=== PATIENT | female | born 1955 | race Caucasian/White ===

== ENCOUNTER → 2016-09-06 | Outpatient (CLI) | payer BC, OTHER ==
[~2016-09-06] VITALS: Ht 157.5 cm; Wt 118.7 kg
[~2016-09-06] MED LIST: BAYER CHEWABLE81 MG PO; BUPRENORPHN-NA1 EACH SUBLING; BUTRANS1 EAC3 TD; BUTRANS1 EACH TD; CARISOPRODOL 3350 MG PO; FISH OIL 1,001000 M2 PO; LEVAQUIN 250 M250 MG PO; LISINOPRIL20 MG PO; MOBIC15 MG PO; NORVASC5 MG PO; PHENTERMINE HCL30 MG PO; PREDNISONE 5 MG5 M1 PO; PRILOSEC OTC20 MG PO; SUBOXONE 2 MG-1 EAC1 SL; ULTRAM 50MG TAB50 MG PO; ZANAFLEX4 MG PO
--- NOTE | ~2016-09-06 | HPC ---
[facility] [place] [place] [address] PAIN MANAGEMENT CONSULTATION Name: LEXUS THOMAS Room #: REG Nae Galo#: [id number] Admission: 09/06/16 Attend Phys: Victor Manuel Roth DO Discharge: Date of : 59 Report #: [id number] THIS REPORT FOR: //name// CC: Jaziel Roth The patient is a pleasant 61-year-old female being treated for myofascial pain, chronic pain syndrome requiring complex medication management, comorbidity includes elevated BMI of 48.2 kg per meter squared, osteoarthritis affecting hands and shoulders. Last visit on 07/12/2016. The patient was continued on Suboxone 2/0.5 b.i.d., Soma 350 one to two at bedtime and tramadol for breakthrough pain 50 mg 2 to 3 a day. He returns to pain clinic today. Medications have continued to provide sufficient analgesia, to participate in activities of daily living, rates the pain about 2 to 3 out of 10. Today she is quite distraught, had a daughter who was recently diagnosed with thyroid cancer. While she notes the surgeon has assured her that it this particular cancer has a very high efficacy of treatment rate, she did unfortunately have, I believe, positive cervical lymph nodes. Otherwise she is relatively unchanged, pleasant 61-year-old female, BMI of 47.8 kg per meter squared, modestly down from last visit. Blood pressure is a little bit elevated at 139/96, pulse 89, respirations 20. She does not use tobacco products. Rises from chair using armrest. Diffuse tenderness across the low back, right greater than left, point tenderness, no discrete trigger point. Gait is tandem. We reviewed the fact that opiate medications are being used to provide analgesia adequate to support activities of daily living, not attempting to achieve a specific pain score on the 0-10 Visual Analog Scale. The current opiate medications are providing sufficient analgesia to allow the patient to participate in activities of daily living. The patient is not exhibiting any aberrant behavior suggestive of drug diversion. The patient is not having any adverse reactions to medications. The patient is not suffering from daytime somnolence or mental acuity changes. The patient is managing opiate-induced constipation with appropriate guns-hgx-ccvjgaj agents and dietary considerations. The patient was counseled on concern for caution with operating a motor vehicle while using opiate medications. A physical exam was performed and the patient's functional status was evaluated. All patients with back pain were advised against the bed rest greater than 4 days and were advised to return to normal activities. Pain score assessment was noted and the treatment plan was reviewed with the patient. All current medications, both prescribed and OTC were reviewed and reconciled on the electronic medical record. Tobacco screening was accomplished and smoking cessation was advised when indicated. BMI was noted and diet/exercise [address] [address] PAIN MANAGEMENT CONSULTATION Name: LEXUS THOMAS Room #: REG LUANNE Galo#: [id number] Admission: 09/06/16 Attend Phys: Victor Manuel Roth DO Discharge: Date of : 59 Report #: [id number] modification was recommended for all patients following outside normal parameters. I reviewed with the patient today their responsibilities to safeguard prescription medications, reviewed their responsibility to utilize medications only as prescribed by the physician. They are to seek and receive pain medications only from 1 physician group ( [facility]). They are to use 1 pharmacy and keep the clinic informed if they change pharmacies. Their responsibilities include making followup visits in a timely fashion and to avoid abrupt discontinuation of medication usage. Their responsibilities further include bringing their medications (bottles from the pharmacy with residual pills) to the visit for possible confirmation of pill counts and the patient understands it is their responsibility to submit to random drug screens to ensure both that the medications prescribed are present, and that no other controlled substances are present. All prescriptions provided today were generated electronically. ASSESSMENT: Myofascial pain requiring chronic complex medication management for chronic pain syndrome and osteoarthritis affecting hands and shoulders, stable on baseline medications. RECOMMENDATION: Renew medications unchanged. Follow up in 2 months for reevaluation. <ELECTRONICALLY SIGNED> By: Victor Manuel Roth DO 09/13/16 0858 [id number] [id number] Victor Manuel Roth DO /nt
[2016-09-06 13:37] VITALS: BP 139/96
== END ==
LOC: PAIN 06:50
DX: M79.1 Myalgia (principal); G89.4 Chronic pain syndrome; E66.01 Morbid (severe) obesity due to excess calories; Z68.42 Body mass index [BMI] 45.0-49.9, adult; M19.042 Primary osteoarthritis, left hand; M19.041 Primary osteoarthritis, right hand; M19.012 Primary osteoarthritis, left shoulder; M19.011 Primary osteoarthritis, right shoulder

== ENCOUNTER → 2017-01-03 | Outpatient (CLI) | payer BC, OTHER ==
[~2017-01-03] VITALS: Ht 157.5 cm; Wt 112.3 kg
[~2017-01-03] MED LIST changes: +FENTANYL PA12 MCG/HR TD
--- NOTE | ~2017-01-03 | HPC ---
[facility] [place] [address] [place] [address] PAIN MANAGEMENT CONSULTATION Name: LEXUS THOMAS Room #: REG LUANNE Galo#: [id number] Admission: 01/03/17 Attend Phys: Victor Manuel Roth DO Discharge: Date of : 59 Report #: [id number] THIS REPORT FOR: //name// CC: Ananda Roth The patient is a 61-year-old female being treated for myofascial pain, chronic pain syndrome requiring complex medication management. I took over her care back in July 2014. She had prior had escalated dose of hydrocodone and had trouble weaning off of that agent. When I saw her, she had had history of vertebral compression fractures at T7, T8, and T9, lumbar radiculopathy, thoracolumbar spondylosis and morbid obesity. We trialed Butrans initially and this provided some efficacy. Unfortunately, she developed a cutaneous rash to the patch in January 2015. We rotated the Suboxone 2/0.5 b.i.d. She has been remarkably stable since January 2015 coming up now on 2 years. She is not exhibiting any aberrant behavior suggestive for drug diversion. She has continued to do well with current medication. She did have a fall since we last saw her. She simply tripped over a cord in the garage. It did exacerbate pain. She uses meloxicam daily, soma for muscle spasm and rare tramadol p.r.n. PHYSICAL EXAMINATION: Today shows pleasant 61-year-old female, BMI remains elevated at 45.3 kilograms per meter squared. Blood pressure is modestly elevated 149/90, [id number], respirations are 20. She is alert and oriented to person, place, and time, judged to be a reasonable historian. Rises from chair using armrest. Diffuse tenderness across the low back, right greater than left, radiating into the buttocks, but not too far down the leg. She has little urinary incontinence, but no myelopathic symptoms. No saddle anesthesia. ASSESSMENT: Symptomatic myofascial pain, thoracolumbar spondylosis, requiring complex medication management. RECOMMENDATIONS: The patient has been remarkably stable on Suboxone 2/0.5 b.i.d., we will continue this agent, soma 350 mg 1-2 at bedtime, meloxicam 15 mg 1 daily and tramadol p.r.n. for breakthrough pain. She has continued to lose weight, BMI at last visit was down from 48.2 to 47 kilograms meter squared. She is down again today to 45.3 kilograms per meter squared. Discharged in Good and stable. Follow up in 2 months for reevaluation. Incidentally, the patient notes that she did have trouble getting her Suboxone paid for last one and she had to pay montes. It has been prior authorized by [facility] typically for 6 months at a time. We will ask them to reauthorize this needed medication. The patient is loathe to go back to [address] [address] PAIN MANAGEMENT CONSULTATION Name: LEXUS THOMAS Room #: GILLIAN Galo#: [id number] Admission: 01/03/17 Attend Phys: Victor Manuel Roth DO Discharge: Date of : 59 Report #: [id number] aggressive use of opiate analgesics orally, again she had trouble weaning off of hydrocodone in the past. She is currently stable. By: [id number] Victor Manuel Roth DO /nt
[2017-01-03 12:42] VITALS: BP 149/90
== END ==
LOC: PAIN 07:33
DX: M47.815 Spondylosis without myelopathy or radiculopathy, thoracolumbar region (principal)

== ENCOUNTER → 2017-03-07 | Outpatient (CLI) | payer BC, OTHER ==
[~2017-03-07] VITALS: Ht 157.5 cm; Wt 110.0 kg
[2017-03-07 12:34] VITALS: BP 137/70
== END | disposition home or self-care (01) ==
LOC: PAIN 06:44
DX: M79.1 Myalgia (principal); Z68.41 Body mass index [BMI] 40.0-44.9, adult; M54.5 Low back pain

== ENCOUNTER → 2017-05-05 | Outpatient (CLI) | payer BC, OTHER ==
--- NOTE | ~2017-05-05 | HPC ---
[facility] [place] [address] [place] [address] PAIN MANAGEMENT CONSULTATION Name: WILLIAMLEXUS Willis Room #: REG [facility] Iraj#: [id number] Admission: 05/05/17 Attend Phys: Victor Manuel Roth DO Discharge: Date of : 59 Report #: [id number] THIS REPORT FOR: //name// CC: Jaziel Roth HISTORY OF PRESENT ILLNESS: The patient is a 61-year-old female being treated for myofascial pain, chronic pain syndrome requiring high risk complex medication management. The patient was last seen in the pain clinic on 03/07/2017. Buccal swab at that time was positive for prescribed medications including buprenorphine, tramadol and phentermine. He returns to pain clinic today noting medications are generally providing sufficient analgesia to participate in activities of daily living. She does not use tobacco products or drink alcohol to excess. She notes pain is exacerbated at low back, right greater than left with activities, worse with walking. She spends a good deal of time with her grandchildren, she typically has her 2-1/2-year-old spend the night on Wednesdays and spends most of the Saturdays and Sundays with she and her . Last couple of weeks, she has had the 2-1/2-year-old 4 or 5 days a week with some increased activity. Pain has begun to be little worse. She incidentally notes today a small lesion on the left forearm. It is on the lateral aspect about [address] past the elbow. It appears to be a 1.5 cm x 2 cm x 1 cm moderately solid nodule, appears somewhat adherent to the extensor muscles and/or tendon. Does not feel "soft" like subcutaneous lipoma would be. It is not around a joint compatible with a synovial type cyst. I suggested she continue to monitor this for another several weeks, we might consider an ultrasound of the mass if it persists . There are no epitrochlear nodes noted. The patient is afebrile. We reviewed the fact that opiate medications are being used to provide analgesia adequate to support activities of daily living, not attempting to achieve a specific pain score on the 0-10 Visual Analog Scale. The current opiate medications are providing sufficient analgesia to allow the patient to participate in activities of daily living. The patient is not exhibiting any aberrant behavior suggestive of drug diversion. The patient is not having any adverse reactions to medications. The patient is not suffering from daytime somnolence or mental acuity changes. The patient is managing opiate-induced constipation with appropriate ffqj-ypy-qfiwjax agents and dietary considerations. The patient was counseled on concern for caution with operating a motor vehicle while using opiate medications. A physical exam was performed and the patient's functional status was evaluated. All patients with back pain were advised against the bed rest greater than 4 days and were advised to return to normal activities. Pain score assessment was noted and the treatment plan was reviewed with the patient. All current [address] [address] PAIN MANAGEMENT CONSULTATION Name: LEXUS THOMAS Room #: REG LUANNE Galo#: [id number] Admission: 05/05/17 Attend Phys: Victor Manuel Roth DO Discharge: Date of : 59 Report #: [id number] medications, both prescribed and OTC were reviewed and reconciled on the electronic medical record. Tobacco screening was accomplished and smoking cessation was advised when indicated. BMI was noted and diet/exercise modification was recommended for all patients following outside normal parameters. I reviewed with the patient today their responsibilities to safeguard prescription medications, reviewed their responsibility to utilize medications only as prescribed by the physician. They are to seek and receive pain medications only from 1 physician group ( [facility]). They are to use 1 pharmacy and keep the clinic informed if they change pharmacies. Their responsibilities include making followup visits in a timely fashion and to avoid abrupt discontinuation of medication usage. Their responsibilities further include bringing their medications (bottles from the pharmacy with residual pills) to the visit for possible confirmation of pill counts and the patient understands it is their responsibility to submit to random drug screens to ensure both that the medications prescribed are present, and that no other controlled substances are present. All prescriptions provided today were generated electronically. ASSESSMENT AND RECOMMENDATIONS: A 61-year-old female with ongoing myofascial pain, chronic pain syndrome requiring complex medication management, stable on Suboxone 8/2 b.i.d. Prior she had had issues with other opiate analgesics, did well with Butrans for quite some time, but developed erythematous rash. We can converted to Suboxone and she has been remarkably stable. I have taken the liberty of renewing 2 months Suboxone 2/0.5 b.i.d. sublingual, Soma 350 b.i.d. and tramadol 50 mg up to 4 times a day. Follow up in 2 months for reevaluation, earlier if the left forearm mass gets worse and/or does not resolve. <ELECTRONICALLY SIGNED> By: Victor Manuel Roth DO 05/06/17 0705 1352 99 Victor Manuel Roth DO /nt
== END ==
LOC: PAIN 07:06
DX: M79.1 Myalgia (principal); M54.5 Low back pain; G89.29 Other chronic pain

== ENCOUNTER → 2017-08-19 | Outpatient (CLI) | payer BC, OTHER ==
[~2017-08-19] VITALS: Ht 157.5 cm; Wt 118.4 kg
[~2017-08-19] MED LIST changes: +AMOXICILLIN 50500 MG PO; +MEDROL DOSPAK21 TA1 PO; +NEURONTIN 300300 M1 PO
--- NOTE | ~2017-08-19 | HPC ---
[facility] [place] [address] PAIN MANAGEMENT CONSULTATION Name: WILLIAMLEXUS R Room #: REG SHANENae Galo#: [id number] Admission: 08/19/17 Attend Phys: Victor Manuel Roth DO Discharge: Date of : 59 Report #: [id number] THIS REPORT FOR: //name// CC: Jaziel Roth DATE OF SERVICE: 08/19/2017 The patient is a pleasant 62-year-old female long known to pain clinic for myofascial pain, axial back pain, chronic pain syndrome requiring high risk complex medication management. Last visit, 06/30/2017, we continued on Suboxone 2/5 b.i.d., Soma 350 b.i.d. for spasm and tramadol 50 mg up to 4 times a day for breakthrough pain. She is having some radicular symptoms. At last visit fortunately, those have quieted down. Last random drug screen 03/07/2017 was positive for prescribed medications. Physical examination today shows endomorphic 62-year-old female, very pleasant, noting medications are providing sufficient analgesia to participate in activities of daily living. She tells me good news today, her daughter who had been diagnosed with thyroid cancer last [place] has completed her therapy and last visit with her oncologist and notes that her daughter is now "cancer free." The patient is having increasing pain in her knees, however, left greater than right. PHYSICAL EXAMINATION: Shows a little ballottable edema in the left knee. Ligaments appear to be intact. Axial back pain remains problematic, but fairly well controlled at present. Range of motion is limited. Gait is modestly antalgic. ASSESSMENT: Axial back pain, chronic pain syndrome, myofascial pain requiring high risk complex medication management with component of degenerative joint disease affecting bilateral knees, left little greater than right. RECOMMENDATIONS: 1. X-rays of bilateral knees. 2. Continue Suboxone 2/5 b.i.d., Soma 350 b.i.d. for spasm, tramadol 50 mg up to 4 a day for breakthrough pain. 3. We will seek authorization for Synvisc injection in her knees. Unfortunately, the patient has [employer] insurance and I believe that they may not allow this. If we cannot get a Synvisc authorized, we will [address] [address] PAIN MANAGEMENT CONSULTATION Name: LEXUS THOMAS Room #: REG LUANNE Galo#: [id number] Admission: 08/19/17 Attend Phys: Victor Manuel Roth DO Discharge: Date of : 59 Report #: [id number] consider a steroid injection x 1 if the knee pain remains problematic. We tentatively made an appointment to follow up in 2-3 weeks. <ELECTRONICALLY SIGNED> By: Victor Manuel Roth DO 09/01/17 0913 0956 1832 Victor Manuel Roth DO /jody
[2017-08-19 09:27] VITALS: BP 147/79
== END ==
LOC: PAIN 07:35
DX: M17.4 Other bilateral secondary osteoarthritis of knee (principal); M25.761 Osteophyte, right knee; M25.762 Osteophyte, left knee; M79.1 Myalgia; M54.89 Other dorsalgia; Z79.899 Other long term (current) drug therapy

== ENCOUNTER → 2017-09-09 | Outpatient (CLI) | payer BC, OTHER ==
[~2017-09-09] VITALS: Ht 157.5 cm; Wt 120.7 kg
--- NOTE | ~2017-09-09 | HPC ---
[facility] [place] [address] [place] [address] PAIN MANAGEMENT CONSULTATION Name: LEXUS THOMAS Room #: REG [facility] Iraj#: [id number] Admission: 09/09/17 Attend Phys: Victor Manuel Roth DO Discharge: Date of : 59 Report #: [id number] THIS REPORT FOR: //name// CC: Jaziel Roth The patient is a very pleasant 62-year-old female typically treated for axial back pain, chronic pain syndrome requiring complex medication management. She has been stable on Suboxone 2/5 b.i.d., Soma 350 b.i.d., tramadol 50 mg up to 4 a day and meloxicam 15 mg daily. Last visit on 08/19/2017, the patient was having increasing pain in the bilateral knees. I ordered x-rays of the knees, which was accomplished on 08/19/2017. The patient has severe DJD in the bilateral knees, right perhaps greater than left though subjectively pain, reports left knee has a little worse pain. We had sought authorization for Synvisc injection. The patient presents to the pain clinic today for left Synvisc injection. While typically this is done in a series of 3, her insurance carrier [employer] will enable only one injection in 30 days and a maximum of 6 injections in a year. We will plan on repeating this injection in 30 days and we will actually do bilateral injections at that time. ASSESSMENT: Bilateral significant osteoarthritis, knees. RECOMMENDATION: Left knee Synvisc injection under fluoroscopy. PROCEDURE: After written informed consent was obtained, the patient was taken to the fluoroscopy suite and placed in the supine position with a bolster under the knee. After wide surgical prep and drape, skin with Xylocaine was raised. A 22-gauge stylet needle was placed from a medial superior entry point in a lateral inferior trajectory under the patella. AP and lateral projections showed good needle placement within the knee joint. Negative aspiration was accomplished. A 2 mL of hylan G-F 20 (Synvisc) was injected. Needle was removed, the area was cleansed and Band-Aids applied. The patient monitored for an appropriate period of time, discharged in good and stable condition, noting significant improvement of her subjective baseline pain. <ELECTRONICALLY SIGNED> By: Victor Manuel Roth DO 09/12/17 0911 1610 0401 Victor Manuel Roth DO /nt
[2017-09-09 12:47] VITALS: BP 130/98
== END | disposition home or self-care (01) ==
LOC: PAIN 06:57
DX: M17.0 Bilateral primary osteoarthritis of knee (principal); G89.4 Chronic pain syndrome; Z79.891 Long term (current) use of opiate analgesic; Z79.899 Other long term (current) drug therapy; Z79.82 Long term (current) use of aspirin

== ENCOUNTER → 2017-10-14 | Outpatient (CLI) | payer BC, OTHER ==
[~2017-10-14] VITALS: Ht 160 cm; Wt 121.7 kg
--- NOTE | ~2017-10-14 | HPC ---
[address] [address] PAIN MANAGEMENT CONSULTATION Name: LEXUS THOMAS [id number] Admission: 10/14/17 Attend Phys: Victor Manuel Roth DO Discharge: Date of : 59 Report #: [id number] THIS REPORT FOR: //name// CC: Jaziel Roth DATE OF SERVICE: 10/14/2017 PROCEDURE: Left and right knee joint injections with Synvisc. INDICATIONS: The patient is a 62-year-old female with significant DJD, bilateral knees. We reviewed x-rays 08/19/2017 showing severe DJD bilateral knees, right perhaps a little greater than left. We did a single left Synvisc injection at last visit. She returns to pain clinic today. Has not yet noted significant relief. We elected to repeat the injections today. We will do bilateral knees and follow up in 30 days for bilateral knee injection as well. ASSESSMENT: Degenerative joint disease, bilateral knees. DESCRIPTION OF PROCEDURE: After written and informed consent was obtained, the patient was taken to fluoroscopy suite, placed in supine position with a bolster under her left knee. After a wide surgical prep and drape, skin wheal with Xylocaine was raised. A 22-gauge stylet needle was placed from a superomedial insertion point in an inferolateral trajectory under the patella. AP and lateral projections showed good needle placement. Negative aspiration was accomplished. A 2 mL of hylan G-F 20 (Synvisc) was injected. Needle was removed, area was cleansed, Band-Aids applied. Attention was then directed at the contralateral, right knee. After written and informed consent was obtained, the patient was taken to fluoroscopy suite, placed in supine position with a bolster under her right knee. After a wide surgical prep and drape, skin wheal with Xylocaine was raised. A 22-gauge stylet needle was placed from a superomedial insertion point in an inferolateral trajectory under the patella. AP and lateral projections showed good needle placement. Negative aspiration was accomplished. A 2 mL of hylan G-F 20 (Synvisc) was injected. Needle was removed, area was cleansed, Band-Aids applied. The patient was monitored for an appropriate period of time, discharged in good and stable condition. Told to use ice to the area, monitor for signs of infection. Fluoroscopy time was under 20 seconds. <ELECTRONICALLY SIGNED> By: Victor Manuel Roth DO 10/19/17 0725 1607 0112 Victor Manuel Roth DO /nt
[2017-10-14 12:49] VITALS: BP 135/60
== END | disposition home or self-care (01) ==
LOC: PAIN 07:23
DX: M17.0 Bilateral primary osteoarthritis of knee (principal)

== ENCOUNTER → 2017-11-24 | Outpatient (CLI) | payer BC, OTHER ==
[~2017-11-24] VITALS: Ht 157.5 cm; Wt 119.8 kg
[~2017-11-24] MED LIST changes: -AMOXICILLIN 50500 MG PO
--- NOTE | ~2017-11-24 | HPC ---
[facility] [place] [address] PAIN MANAGEMENT CONSULTATION Name: LEXUS THOMAS Room #: REG [facility]#: [id number] Admission: 11/24/17 Attend Phys: Victor Manuel Roth DO Discharge: Date of : 59 Report #: [id number] THIS REPORT FOR: //name// CC: Jaziel Roth PROCEDURE PERFORMED: Bilateral knee Synvisc injections with fluoroscopy. INDICATION: Symptomatic osteoarthritis of bilateral knees. DESCRIPTION OF PROCEDURE: After written informed consent was obtained, the patient was taken to the fluoroscopy suite, placed in the seated position with legs dangling. Entry point, inferior lateral knee superior to the fibular head, was identified. Area was cleansed. Skin wheal with lidocaine was raised. A 22-gauge stylet needle was placed in a medial moderately superior angle into the knee joint proper. Oblique and AP fluoroscopy showed good needle placement within the knee joint proper. A 2 mL of Synvisc (hyaline G-F 20) was injected. The needle was then removed. Area was cleansed. Attention was directed at the contralateral knee, which was treated in a mirror like procedure. After both knees had been injected, area was cleansed, Band-Aids were applied. The patient was allowed to ambulate to Recovery Room, told to use ice today. Observe for signs of infection, report to the ER if she has a systemic illness, fever, chills or localized swelling, erythema at the knee. Follow up in 1 week for repeat injection. We will likely proceed with a superior medial approach for the second and a superior lateral approach for the third injection. Fluoroscopy time was under 15 seconds. <ELECTRONICALLY SIGNED> By: Victor Manuel Roth DO 12/12/17 0822 0805 0907 Victor Manuel Roth DO /nt
[2017-11-24 07:42] VITALS: BP 125/69
== END | disposition home or self-care (01) ==
LOC: PAIN 06:56
DX: M17.0 Bilateral primary osteoarthritis of knee (principal); G89.29 Other chronic pain; Z79.899 Other long term (current) drug therapy; Z79.82 Long term (current) use of aspirin

== ENCOUNTER → 2017-12-01 | Outpatient (CLI) | payer BC, OTHER ==
[~2017-12-01] VITALS: Ht 157.5 cm; Wt 110.7 kg
--- NOTE | ~2017-12-01 | HPC ---
[facility] [place] [address] [address] PAIN MANAGEMENT CONSULTATION Name: LEXUS THOMAS [id number] Admission: 12/01/17 Attend Phys: Victor Manuel Roth DO Discharge: Date of : 59 Report #: [id number] THIS REPORT FOR: //name// CC: Jaziel Roth The patient is a 62-year-old female typically treated for chronic pain syndrome, requiring complex medication management. She is managed with Suboxone. She does have ongoing osteoarthritis, DJD, comorbidity includes morbid obesity. She has had 3 Synvisc injections left knee, 09/18/2017, 10/14/2017 and 11/18/2017. She has had 2 injections in the right knee, 10/14/2017 and 11/18/2017. She presents to pain clinic today for third right knee injection. She states the right knee is feeling better, left knee is generally better, but she has a small area about 2 inches in diameter in the medial to the patella that is a burning dysesthesia. We have elected to trial some gabapentin 300 mg at bedtime for 5 nights and then 2 tablets at bedtime. Follow up in 3 weeks for reevaluation. ASSESSMENT: Osteoarthritis, right knee. PROCEDURE: Right knee injection under fluoroscopy, Synvisc #3. DESCRIPTION OF PROCEDURE: After written informed consent was obtained, the patient was taken to fluoroscopy suite, placed in prone position. After sterile prep and drape, skin wheal was raised. A 22-gauge stylet needle was placed from a superior lateral aspect into an inferior medial trajectory under the right knee. AP and lateral projections showed good needle placement. Negative aspiration was accomplished. A 2 mL of Synvisc was injected. Needle was removed. The area was cleansed. Band-Aid was applied. The patient monitored for an appropriate period of time, discharged in good and stable condition. Fluoroscopy time was under 10 seconds. <ELECTRONICALLY SIGNED> By: Victor Manuel Roth DO 12/05/17 [id number] Victor Manuel Roth DO /nt
[2017-12-01 12:43] VITALS: BP 167/86
== END | disposition home or self-care (01) ==
LOC: PAIN 07:27
DX: M17.11 Unilateral primary osteoarthritis, right knee (principal); Z79.899 Other long term (current) drug therapy

== ENCOUNTER → 2018-02-20 | Outpatient (CLI) | payer BC, OTHER ==
[~2018-02-20] VITALS: Ht 157.5 cm; Wt 119.3 kg
--- NOTE | ~2018-02-20 | HPC ---
[facility] [place] [address] PAIN MANAGEMENT CONSULTATION Name: LEXUS THOMAS Room #: REG [facility] Iraj#: [id number] Admission: 02/20/18 Attend Phys: Victor Manuel Roth DO Discharge: Date of : 59 Report #: [id number] THIS REPORT FOR: //name// CC: Jaziel Roth The patient is a pleasant 62-year-old female, being treated for osteoarthritis affecting both knees, chronic pain syndrome, myofascial pain component, requiring complex medication management. She was last seen in the pain clinic 12/22/2017. She has been stable on baseline medication including Suboxone 2/0.5 t.i.d. with tramadol for breakthrough pain. Last seen in the pain clinic 12/22/2017. She has had 3 Synvisc injections, bilateral knees earlier this year. Fortunately, the right knee is doing very well, left knee still has painful issues, the patient feels that there is an object that occasionally gets "locked" in the knee. She may have a "bucket handle" tear versus foreign body. Nonetheless, she is doing reasonably well with current medications. I did suggest she follow up with [facility] regarding the left knee. We reviewed the fact that opiate medications are being used to provide analgesia adequate to support activities of daily living, not attempting to achieve a specific pain score on the 0-10 Visual Analog Scale. The current opiate medications are providing sufficient analgesia to allow the patient to participate in activities of daily living. The patient is not exhibiting any aberrant behavior suggestive of drug diversion. The patient is not having any adverse reactions to medications. The patient is not suffering from daytime somnolence or mental acuity changes. The patient is managing opiate-induced constipation with appropriate zsuf-uuv-iybtivc agents and dietary considerations. The patient was counseled on concern for caution with operating a motor vehicle while using opiate medications. A physical exam was performed and the patient's functional status was evaluated. All patients with back pain were advised against the bed rest greater than 4 days and were advised to return to normal activities. Pain score assessment was noted and the treatment plan was reviewed with the patient. All current medications, both prescribed and OTC were reviewed and reconciled on the electronic medical record. Tobacco screening was accomplished and smoking cessation was advised when indicated. BMI was noted and diet/exercise modification was recommended for all patients following outside normal parameters. I reviewed with the patient today their responsibilities to safeguard prescription medications, reviewed their responsibility to utilize medications only as prescribed by the physician. They are to seek and receive pain medications only from 1 physician group ( [facility]). They are to use 1 pharmacy and keep the clinic informed if they change pharmacies. Their responsibilities include making followup visits in a timely fashion and to avoid abrupt discontinuation of medication usage. Their responsibilities further [address] [address] PAIN MANAGEMENT CONSULTATION Name: LEXUS THOMAS Room #: REG LUANNE Galo#: [id number] Admission: 02/20/18 Attend Phys: Victor Manuel Roth DO Discharge: Date of : 59 Report #: [id number] include bringing their medications (bottles from the pharmacy with residual pills) to the visit for possible confirmation of pill counts and the patient understands it is their responsibility to submit to random drug screens to ensure both that the medications prescribed are present, and that no other controlled substances are present. All prescriptions provided today were generated electronically. The patient has been stable on Butrans for sometime, but developed skin irritation with a rash. She uses Soma 350 mg b.i.d. for spasm, tramadol for breakthrough pain. I started gabapentin, titrated to 600 mg at bedtime, which has been very effective for the neuropathic pain component. The patient's comorbidity includes morbid obesity. She has tried phentermine for weight loss. She has unfortunately been fairly stable with a BMI in the high 40s. Last random drug screen was in February 2017. She show no aberrant behavior suggestive of drug diversion. We will likely want to get another random drug screen sometime before the end of the year. PHYSICAL EXAMINATION: Otherwise, relatively unchanged, elevated BMI, but the patient can get about fairly easily. She rises from a chair using the armrest, but gait is generally tandem. There is a little ballotable edema in the left knee. Range of motion is modestly limited to flexion. Some diffuse axial back pain, no discrete trigger points are noted. Vital signs are as noted in the EMR. ASSESSMENT: Osteoarthritis of the bilateral knees, chronic pain syndrome requiring complex medication management, component of myofascial pain, stable on baseline medication including Suboxone 2/0.5 t.i.d., gabapentin 300 mg 2 tablets at bedtime, Soma 350 mg 1-2 at bedtime, tramadol for breakthrough pain up to 4 a day, and Meloxicam 15 mg 1 a day (discussed "non daily use" in consideration of CV risks). I have taken the liberty of writing for 2 months of current medication. We will ask the patient to follow up with Dr. Jean Paul Escobar. We will also prescribe Suboxone. Again, this is being used specifically for pain and not for habituation issues. <ELECTRONICALLY SIGNED> By: Victor Manuel Roth DO 02/22/18 0725 [id number] Victor Manuel Roth DO /nt
[2018-02-20 12:38] VITALS: BP 131/83
== END ==
LOC: PAIN 06:41
DX: M17.0 Bilateral primary osteoarthritis of knee (principal); G89.4 Chronic pain syndrome; Z79.899 Other long term (current) drug therapy

== ENCOUNTER → 2018-04-20 | Outpatient (CLI) | payer BC, OTHER ==
[~2018-04-20] VITALS: Ht 157.5 cm; Wt 118.8 kg
[~2018-04-20] MED LIST changes: +AMOXICILLIN 50500 MG PO
--- NOTE | ~2018-04-20 | HPC ---
[facility] [place] [address] [address] [place] [address] PAIN MANAGEMENT CONSULTATION Name: WILLIAM,LEXUS R Room #: REG LUANNE Iraj#: [id number] Admission: 04/20/18 Attend Phys: Jean Paul Escobar MD Discharge: Date of : 59 Report #: [id number] THIS REPORT FOR: //name// CC: Jean Paul Mosqueda DATE OF SERVICE: 04/20/2018 This is my first visit with the patient who has been followed in the pain clinic by Dr. Victor Manuel Roth for a number of years. Dr. Roth has recently moved to [place] and asked if I would assume medications for her. She is on an opioid agreement with [facility] and I have agreed to do so. She has longstanding pain in her back and also in her knees. Dr. Roth has treated her with injections, which have provided modest relief in her knees. Unfortunately, lasting benefit was not obtained. She is morbidly obese and has significant osteoarthritis, which will eventually need to be addressed. She is only 62. Her pain is quite severe. She works fulltime and without the help of medication, she does not feel that she would be able to continue. She works at [employer] and has been there for 17 years. In addition, she is a mother and has some of her children still living in the basement! She was caregiving for her daughter when she developed thyroid cancer a year ago. She is grateful for the relief that she receives from medication. Dr. Roth has her on Suboxone, low dose, 2/0.5 which she takes on a schedule every day. Her daily dose is t.i.d., and she has now been on it for a couple of years. It allows her to continue working. She denies any significant side effects and has carefully safeguarded her medication. In addition to the buprenorphine, Dr. Roth has given her tramadol, which she takes as a supplement up to 4 times a day and she is allowed 120 tablets per month. Co-analgesics include gabapentin, meloxicam, and carisoprodol. All medications were reviewed and reconciled today. Today, she reports to me that her pain control is adequate. Her pain score is 3 in her back and 6 in her knees. PHYSICAL EXAMINATION: She is a saira 62-year-old with a BMI of 47.9, blood pressure 157/76, heart rate 83, respirations 16. She has pain across her low back with forward flexion and extension. She has tenderness located along the paravertebral lumbar spine and along the sacroiliac joints as well. Examination of the knees reveals tenderness throughout the knee joint and pain with flexion and extension. [place] [address] PAIN MANAGEMENT CONSULTATION Name: LEXUS THOMAS Room #: REG CLNae Galo#: [id number] Admission: 04/20/18 Attend Phys: Jean Paul Escobar MD Discharge: Date of : 59 Report #: [id number] IMPRESSION: 1. Osteoarthritis, primarily involving knees. 2. Morbid obesity. 3. Chronic intractable back pain with spondylosis and radiculopathy. 4. Management of high risk medication. PLAN: I renewed her medications in terms of a written opioid agreement. She understands the critical importance of safeguarding all her medications. We reviewed the aspects of her contract/agreement that states that she will be seen at regular intervals, get her medication from one pharmacy and may need to submit to periodic drug testing per our requirements. This will be at my discretion. She understands and we will reinitiate the agreement and I plan to see her back in the pain clinic in 2 months. Prescriptions provided for meloxicam, gabapentin, carisoprodol, tramadol and Suboxone. By: [id number] Jean Paul Escobar MD /nt
[2018-04-20 12:32] VITALS: BP 157/76
== END ==
LOC: PAIN 07:28
DX: M47.27 Other spondylosis with radiculopathy, lumbosacral region (principal); M17.0 Bilateral primary osteoarthritis of knee; G89.4 Chronic pain syndrome; E66.01 Morbid (severe) obesity due to excess calories; Z79.899 Other long term (current) drug therapy

== ENCOUNTER → 2018-06-26 | Outpatient (CLI) | payer BC, OTHER ==
[~2018-06-26] VITALS: Ht 157.5 cm; Wt 120.2 kg
--- NOTE | ~2018-06-26 | HPC ---
[facility] [place] [address] PAIN MANAGEMENT CONSULTATION Name: LEXUS THOMAS Room #: REG [facility] Iraj#: [id number] Admission: 06/26/18 Attend Phys: Medina Boyer Discharge: Date of : 59 Report #: [id number] THIS REPORT FOR: //name// CC: Medina Mosqueda DATE OF SERVICE: 06/26/2018 CHIEF COMPLAINT: The patient is here for medication refill for her osteoarthritis and chronic intractable back pain. HISTORY OF PRESENT ILLNESS: The patient returns to the clinic today for a refill of her medications, states they are very helpful in controlling her knee pain and back pain. She tells me that her Synvisc injections have helped with her right knee, the left is still bothersome especially at one spot. The patient is hopeful to have her knee replaced in the future, but not presently. She is trying to wait as long as possible. The patient also complains of low back pain. She tells me that she has been caring for her grandchildren on the weekend and able to do so with all of her medicines and function appropriately. She also works at [employer] and states Mondays are very busy days, but she enjoys her job. The patient denies constipation or daytime sleepiness with her medications. Her pain score today she tells me is 4/6 and that is a fairly average score for her and her medicines and ice helps her knee pain. ALLERGIES: No known drug allergies. MEDICATIONS: List of medications: Suboxone 2/0.5 mg 3 times a day, tramadol 50 mg 4 times a day, meloxicam 15 daily, gabapentin 300 mg 2 tablets at bedtime, Soma 350 1-2 p.r.n., amlodipine 5 mg daily, fish oil, Rashida aspirin daily, Prilosec daily and lisinopril 20 mg once a day. PQRS: 1. She has osteoarthritis in both of her knees. Denies rheumatoid arthritis. 2. Height is 5 feet 2 inches, weight 265, BMI is 48.5. 3. Vital signs 129/68, pulse is 72, respirations 20, oxygen sat is 97. 4. Pain intensity is 4-6/10. 5. Fall risk. She denies dizziness. Does not need help walking or standing and has not fallen in the last 3 months. 6. No blood thinners. 7. Does have a history of hypertension. 8. Opioid therapy greater than 6 weeks and opioid signed contract on the chart. 9. Her risk assessment tool is low. 10. Functional assessment 32-70. 11. The patient denies recreational drug use. Does [place] [address] PAIN MANAGEMENT CONSULTATION Name: LEXUS THOMAS Room #: REG LUANNE Galo#: [id number] Admission: 06/26/18 Attend Phys: Medina Boyer Discharge: Date of : 59 Report #: [id number] alcohol products. [place] and [place] PDMP were checked, [place] was positive for appropriate medicines with Dr. Jean Paul Escobar and no other fills from any other doctors. The patient tells me she safeguards her medicines. PHYSICAL EXAMINATION: This is a 63-year-old female with a BMI of 48.5, blood pressure 129/68, pulse 72, respirations 20, and oxygen sat of 97. She appears her stated age. Pain is in her low back with flexion and extension. She has tenderness in her lower back and also pain in bilateral knees, especially right lateral aspect of her left knee. Her gait is antalgic. IMPRESSION: 1. Osteoarthritis, primarily involving knees. 2. Morbid obesity. 3. Chronic intractable back pain with spondylosis and radiculopathy. 4. Management of high risk medications. We reviewed the fact that opiate medications are being used to provide analgesia adequate to support activities of daily living, not attempting to achieve a specific pain score on the 0-10 Visual Analog Scale. The current opiate medications are providing sufficient analgesia to allow the patient to participate in activities of daily living. The patient is not exhibiting any aberrant behavior suggestive of drug diversion. The patient is not having any adverse reactions to medications. The patient is not suffering from daytime somnolence or mental acuity changes. The patient is managing opiate-induced constipation with appropriate hntz-wua-ghmnqnb agents and dietary considerations. The patient was counseled on concern for caution with operating a motor vehicle while using opiate medications. A physical exam was performed and the patient's functional status was evaluated. All patients with back pain were advised against the bed rest greater than 4 days and were advised to return to normal activities. Pain score assessment was noted and the treatment plan was reviewed with the patient. All current medications, both prescribed and OTC were reviewed and reconciled on the electronic medical record. Tobacco screening was accomplished and smoking cessation was advised when indicated. BMI was noted and diet/exercise modification was recommended for all patients following outside normal parameters. I reviewed with the patient today their responsibilities to safeguard prescription medications, reviewed their responsibility to utilize medications only as prescribed by the physician. They are to seek and receive pain medications only from 1 physician group ([facility]). They are to use 1 pharmacy and keep the clinic informed if they change pharmacies. Their responsibilities include making followup visits in a timely fashion and to avoid [address] [place] [address] PAIN MANAGEMENT CONSULTATION Name: WILLIAMLEXUS CAT Room #: REG Nae Rahman.#: [id number] Admission: 06/26/18 Attend Phys: Medina Boyer Discharge: Date of : 59 Report #: [id number] abrupt discontinuation of medication usage. Their responsibilities further include bringing their medications (bottles from the pharmacy with residual pills) to the visit for possible confirmation of pill counts and the patient understands it is their responsibility to submit to random drug screens to ensure both that the medications prescribed are present, and that no other controlled substances are present. All prescriptions provided today were generated electronically. PLAN: 1. Medications were renewed for the patient today. a. Suboxone 2/0.5, #90 three times a day. b. Tramadol 50 mg 4 times a day, #120 with one additional refill. c. Soma 350 mg, #60 with one additional refill. d. Gabapentin 300 mg two at bedtime, #60 with one additional refill. e. Meloxicam 15 mg once a day, #30 with one additional refill. 2. We discussed that the patient's weight has increased. The patient tells me that she was on phentermine in the past and is wishing to return on that shortly. Her doctor told her that she needed to take time off from that medication, but has gained weight back since then and would like to restart. So, she will discuss this with her primary at her next visit. 3. We did a buccal drug screen on this patient since the last one was done in 02/2017. We anticipate it to be appropriate with her current medications since she has had no aberrant use in the past, but we will recheck it nonetheless. 4. The patient will be seen in 2 months for followup visit for her medications. The patient is agreeable with this plan of care. 5. The patient was seen in collaboration with Dr. Jean Paul Escobar. <ELECTRONICALLY SIGNED> By: Medina Boyer 06/27/18 0720 [id number] Medina Boyer /jody
[2018-06-26 09:25] VITALS: BP 129/68
== END ==
LOC: PAIN 08:04
DX: M47.26 Other spondylosis with radiculopathy, lumbar region (principal); G89.4 Chronic pain syndrome; M54.5 Low back pain; M17.0 Bilateral primary osteoarthritis of knee; E66.01 Morbid (severe) obesity due to excess calories; Z79.899 Other long term (current) drug therapy

== ENCOUNTER → 2018-08-24 | Outpatient (CLI) | payer BC, OTHER ==
[~2018-08-24] VITALS: Ht 157.5 cm; Wt 119.2 kg
[~2018-08-24] MED LIST changes: +STOOL SOFTENER100 M1 PO
[2018-08-24 09:40] VITALS: BP 157/79
--- NOTE | 2018-08-24 09:54 | NUR ---
Pain Clinic Assessment: 1. History of Osteoarthritis: kevan knees History of Rheumatoid Arthritis: Not Applicable 2. Height: 5 ft. 2 in. 157.5 cm. Weight: 262.8 lb. oz. 119.206 kg. Patient's BMI: 48.1 3. Vital Signs: BP: 157/79 Pulse: 73 Resp: 20 Temp: 02 Sat: 100 ECG Mon: 4. Pain Intensity: 4 5. Fall Risk: Dizziness: N Needs help standing or walking: N Fallen in the last 3 months: N Fall risk comments: 6. Patient on Blood Thinner: None 7. History of Hypertension: Y 8. Opioid Therapy greater than 6 weeks: Y Opiate Contract Signed: 03/12/16 9. Risk Assessment Tool Provided: LOW RISK 3 10. Functional Assessment Tool: 11. Recreational Drug Use: Never Drug Type: Tobacco Use: Never Smoker Tobacco Type: Amount or Packs/day: How Many Years: Alcohol Use: No Frequency: Quant:
--- NOTE | 2018-08-30 10:10 | HPC ---
[facility] [address] [address] PAIN MANAGEMENT CONSULTATION Name: LEXUS THOMAS Room #: REG LUANNE Galo#: [id number] Admission: 08/24/18 Attend Phys: Medina Boyer Discharge: Date of : 59 Report #: [id number] THIS REPORT FOR: //name// CC: Medina Senen Jaylin DATE OF SERVICE: 08/24/2018 CHIEF COMPLAINT: Osteoarthritis and chronic intractable pain. HISTORY OF PRESENT ILLNESS: The patient returns to the Pain Clinic today for followup for her medication refills. She tells me that her pain is controlled, rating her pain today at 4/10 for her back and 6/10 for her knee pain. She also does say that her left knee is worse than her right knee. Medications are very helpful in relieving her pain. Her pain is worse with walking and standing. She has been very active lately. She had recently had a new grandbaby born, so she has been at the hospital and helping doctors' appointments. Also, the patient tells me that she had a kidney stone herself about 3 weeks ago. She passed it without being hospitalized and then last weekend, she had an episode of constipation. She had a vagal type episode at home. Her took her to the hospital. Her constipation has been resolved and now she takes a stool softener every day. She tells me she is not having any further constipation problems. She denies any daytime sleepiness. She would like a refill of her medications today. ALLERGIES: No known drug allergies. CURRENT MEDICATIONS: Stool softener daily, gabapentin 600 mg at bedtime, meloxicam 15 mg daily, Suboxone 2/0.5 three times a day, tramadol 50 mg up to 4 times a day, Soma 350 mg 1-2 at bedtime, amlodipine 5 mg daily, fish oil daily, chewable aspirin daily, Prilosec daily, lisinopril 20 mg daily and phentermine 37.5 mg daily. PQRS: She has a history of osteoarthritis both in her knees. She denies rheumatoid arthritis. Height is 5 feet 2 inches, weight is 262, BMI is 48.1. Vital signs 157/79, pulse is 73, respirations 20, oxygen sat of 100, pain score 4/10. Fall risk: Denies dizziness, does not need help walking or standing, had not fallen in the last 3 months. The patient denies blood thinners. She does take antihypertensive medicines. Her opioid therapy is greater than 6 weeks; therefore, an opioid signed contract is on the chart. Her risk assessment tool is low. Her functional assessment is 32/70. Recreational drug use, she denies. She is not a smoker. She does not drink alcohol. We did check the prescription monitoring system. The patient is filling appropriately and is due for her medication refills today. We had checked a drug screen on her last visit. It did not show tramadol. The patient tells me that she sometimes does not take it daily and thinks that is may be why it did not show up and had [address] [place] [address] PAIN MANAGEMENT CONSULTATION Name: LEXUS THOMAS Room #: REG CLI Iraj#: [id number] Admission: 08/24/18 Attend Phys: Medina Boyer Discharge: Date of : 59 Report #: [id number] phentermine, which she had restarted recently since she had been off that for several months and has recently restarted it. The patient tells me she does safeguard all of her medications. PHYSICAL EXAMINATION: GENERAL: This is a well-developed, well-nourished 63-year-old that is obese, alert and orientated x 3. Her affect is appropriate. HEENT: Normocephalic, atraumatic. Extraocular eye muscles are intact. Mucous membranes are moist. Hearing is adequate. NECK: No JVD or adenopathy. Range of motion is adequate. MUSCULOSKELETAL: Pain is in her low back with flexion and extension. Tenderness in her knees, especially the left today. Lower extremity strength judged to be 5/5 in all major muscle groups. Walk is antalgic gait. IMPRESSION: 1. Osteoarthritis, primarily involving knees. 2. Morbid obesity. 3. Chronic intractable pain with spondylosis and radiculopathy. 4. Management of high risk medications under terms of opioid agreement. We reviewed the fact that opiate medications are being used to provide analgesia adequate to support activities of daily living, not attempting to achieve a specific pain score on the 0-10 Visual Analog Scale. The current opiate medications are providing sufficient analgesia to allow the patient to participate in activities of daily living. The patient is not exhibiting any aberrant behavior suggestive of drug diversion. The patient is not having any adverse reactions to medications. The patient is not suffering from daytime somnolence or mental acuity changes. The patient is managing opiate-induced constipation with appropriate srme-zbe-bexbcdh agents and dietary considerations. The patient was counseled on concern for caution with operating a motor vehicle while using opiate medications. A physical exam was performed and the patient's functional status was evaluated. All patients with back pain were advised against the bed rest greater than 4 days and were advised to return to normal activities. Pain score assessment was noted and the treatment plan was reviewed with the patient. All current medications, both prescribed and OTC were reviewed and reconciled on the electronic medical record. Tobacco screening was accomplished and smoking cessation was advised when indicated. BMI was noted and diet/exercise modification was recommended for all patients following outside normal parameters. I reviewed with the patient today their responsibilities to safeguard prescription medications, reviewed their responsibility to utilize medications only as prescribed by the physician. They are to seek and receive pain medications only from 1 physician group ([facility]). They are to use [address] [address] PAIN MANAGEMENT CONSULTATION Name: LEXUS THOMAS Room #: REG CL Josiah.#: [id number] Admission: 08/24/18 Attend Phys: Medina Boyer Discharge: Date of : 59 Report #: [id number] pharmacy and keep the clinic informed if they change pharmacies. Their responsibilities include making followup visits in a timely fashion and to avoid abrupt discontinuation of medication usage. Their responsibilities further include bringing their medications (bottles from the pharmacy with residual pills) to the visit for possible confirmation of pill counts and the patient understands it is their responsibility to submit to random drug screens to ensure both that the medications prescribed are present, and that no other controlled substances are present. All prescriptions provided today were generated electronically. PLAN: We discussed treatment options today with this patient and we will continue her on her current medications. The patient tells me that occasionally she does take 2 Suboxone a day. I have instructed the patient to try and keep track of how many days that she takes 2 and not 3. If we are able to decrease her from 90 to 75 pills a month then that would be good, less medicine that is up there in case somebody would get in her house, and if she is not needing, then we will need to be prescribing those medication. The patient tells me that she will try and keep track of the days over the next 2 months and let us know at her next followup visit. Scripts today are tramadol 50 mg q.i.d., #120 with one additional refill; gabapentin 300 mg 2 tablets at bedtime, #60 with one additional refill; meloxicam 15 mg, 30 with one additional refill; Suboxone 2/0.5 t.i.d., #90 for today and one additional refill; and Soma 350 mg 1-2 at bedtime, quantity 60 with one additional refill. 2. The patient will follow up in 2 months. Care given today under the direction of Dr. Jean Paul Escobar. <ELECTRONICALLY SIGNED> By: Medina Boyer 08/30/18 [id number] Medina Boyer /jody
== END ==
LOC: PAIN 07:34
DX: M17.0 Bilateral primary osteoarthritis of knee (principal); E66.01 Morbid (severe) obesity due to excess calories; G89.4 Chronic pain syndrome; Z79.891 Long term (current) use of opiate analgesic

== ENCOUNTER → 2018-10-24 | Outpatient (CLI) | payer BC, OTHER ==
[~2018-10-24] VITALS: Ht 157.5 cm; Wt 118.8 kg
[2018-10-24 11:01] VITALS: BP 137/92
--- NOTE | 2018-10-24 11:22 | NUR ---
Pain Clinic Assessment: 1. History of Osteoarthritis: kevan knees History of Rheumatoid Arthritis: Not Applicable 2. Height: 5 ft. 2 in. 157.5 cm. Weight: 262.0 lb. oz. 118.843 kg. Patient's BMI: 47.9 3. Vital Signs: BP: 137/92 Pulse: 80 Resp: 16 Temp: 02 Sat: 100 ECG Mon: 4. Pain Intensity: BACK-2, KNEES-10 5. Fall Risk: Dizziness: N Needs help standing or walking: N Fallen in the last 3 months: N Fall risk comments: 6. Patient on Blood Thinner: None 7. History of Hypertension: Y 8. Opioid Therapy greater than 6 weeks: Y Opiate Contract Signed: 03/12/16 9. Risk Assessment Tool Provided: LOW RISK 3 10. Functional Assessment Tool: 11. Recreational Drug Use: Never Drug Type: Tobacco Use: Never Smoker Tobacco Type: Amount or Packs/day: How Many Years: Alcohol Use: No Frequency: Quant:
--- NOTE | 2018-10-25 07:48 | HPC ---
[facility] [address] [address] PAIN MANAGEMENT CONSULTATION Name: WILLIAMLEXUS R Room #: REG [facility] Iraj#: [id number] Admission: 10/24/18 ������������������ Attend Phys: Medina Boyer Discharge: ������������������ Date of : 59 Report #: [id number] THIS REPORT FOR: //name// CC: Medina Mosqueda DATE OF SERVICE: 10/24/2018 CHIEF COMPLAINT: Bilateral knee pain and chronic intractable back pain. HISTORY OF PRESENT ILLNESS: This is a very pleasant 63-year-old female who returns to the pain clinic today complaining of lower back pain and bilateral knee pain. She tells me that her left knee is worse than the right. Today, she tells me that her pain score is 10/10 in her knees and 2/10 in her back. She feels that her medications are very helpful in controlling her back pain. She is able to get up and do activities around the house and help take care of her grandchildren that her knee pain does limit her and she needs to sit down and rest and put ice packs on her knees occasionally. She is wondering if she can have another injection in her knees. She is trying to prolong her knee replacement as long as she is able. She needs a refill of her medications today. ALLERGIES: No known drug allergies. CURRENT LIST OF MEDICATIONS: Gabapentin 600 at night, meloxicam 15 mg daily, stool softener as needed, Suboxone 2/0.5 mg t.i.d., tramadol 50 mg up to 4 times a day p.r.n., Soma 350 mg 1-2 tablets at bedtime, Norvasc 5 mg daily, fish oil p.r.n., Rashida aspirin 81 mg daily, lisinopril 20 mg daily and omeprazole 20 mg daily. PQRS: She does have osteoarthritis in her bilateral knees. Denies rheumatoid arthritis. Height is 5 feet 2 inches, weight is 262, BMI is 47.9. Vital signs: 137/92, pulse is 80, respirations 16, oxygen sat is 100. Pain score back 2/10. Knees are 10/10. Fall risk, she denies dizziness, does not need help walking or standing, has not fallen in the last 3 months. The patient is not on any blood thinners. She does take medicine for hypertension. Her opiate therapy is greater than 6 weeks, therefore, an opioid signed contract is on the chart. Risk assessment tool is low and her functional assessment is 32/70. She denies recreational drugs. She does not smoke. She does not drink alcohol. I did check the prescription monitoring system. The patient was filling appropriately for medicines from Dr. Jean Paul Escobar. The patient has a recent drug screen that is appropriate on her chart. PHYSICAL EXAMINATION: [facility] [address] [place] [address] PAIN MANAGEMENT CONSULTATION Name: LEXUS THOMAS Room #: REG LUANNE Galo#: [id number] Admission: 10/24/18 ������������������ Attend Phys: Medina Boyer Discharge: ������������������ Date of : 59 Report #: [id number] GENERAL: This is a well-developed, well-nourished 63-year-old that is obese. She is alert and orientated x 3. Her affect is appropriate. HEENT: Normocephalic, atraumatic. Extraocular eye muscles are intact. Mucous membranes are moist. Hearing is adequate. NECK: No JVD, or adenopathy. Range of motion is adequate. MUSCULOSKELETAL: She complains of pain in her lower back, complains of tenderness in her knees, especially the left knee today. Lower extremity strength judged to be 5/5 in all major muscle groups. She is walking with an antalgic gait. IMPRESSION: 1. Osteoarthritis, primarily involving the knees, morbid obesity, chronic intractable pain with spondylosis and lumbar radiculopathy. 2. Management of high risk medications in terms of written opioid agreement. 3. Chronic pain. We reviewed the fact that opiate medications are being used to provide analgesia adequate to support activities of daily living, not attempting to achieve a specific pain score on the 0-10 Visual Analog Scale. The current opiate medications are providing sufficient analgesia to allow the patient to participate in activities of daily living. The patient is not exhibiting any aberrant behavior suggestive of drug diversion. The patient is not having any adverse reactions to medications. The patient is not suffering from daytime somnolence or mental acuity changes. The patient is managing opiate-induced constipation with appropriate smhh-sgb-dpkocbw agents and dietary considerations. The patient was counseled on concern for caution with operating a motor vehicle while using opiate medications. A physical exam was performed and the patient's functional status was evaluated. All patients with back pain were advised against the bed rest greater than 4 days and were advised to return to normal activities. Pain score assessment was noted and the treatment plan was reviewed with the patient. All current medications, both prescribed and OTC were reviewed and reconciled on the electronic medical record. Tobacco screening was accomplished and smoking cessation was advised when indicated. BMI was noted and diet/exercise modification was recommended for all patients following outside normal parameters. I reviewed with the patient today their responsibilities to safeguard prescription medications, reviewed their responsibility to utilize medications only as prescribed by the physician. They are to seek and receive pain medications only from 1 physician group ( [facility]). They are to use 1 pharmacy and keep the clinic informed if they change pharmacies. Their responsibilities include making followup visits in a timely fashion and to avoid abrupt discontinuation of medication usage. Their responsibilities further include bringing their medications (bottles from the pharmacy with residual [facility] [address] [place] [address] PAIN MANAGEMENT CONSULTATION Name: WILLIAMLEXUS R Room #: REG [facility] Josiah.#: [id number] Admission: 10/24/18 ������������������ Attend Phys: Medina Boyer Discharge: ������������������ Date of : 59 Report #: [id number] pills) to the visit for possible confirmation of pill counts and the patient understands it is their responsibility to submit to random drug screens to ensure both that the medications prescribed are present, and that no other controlled substances are present. All prescriptions provided today were generated electronically. PLAN: 1. We discussed treatment options with the patient today. She tells me that she is doing well on her current regimen. She would like to have refills of her Suboxone 2/0.5 mg #90 for today and 4-week release, tramadol 50 mg q.i.d. #120 with one additional refill, Soma 350 mg 1-2 tablets at bedtime, quantity 60 with one additional refill, meloxicam 15 mg every day, #30 with 2 additional refills, gabapentin 300 mg 2 at bedtime, quantity 60 with 2 additional refills. 2. We discussed her knee replacement options due to her increasing pain. Her last injection in her knees was in November. The patient feels that the Synvisc did help for quite a while in her right knee. Her left knee is bothering her more currently and was wondering about a cortisone steroid injection. Appointment was made with Dr. Agustin Roth to have this procedure done in the next few weeks. 3. We did talk about possibly getting a second opinion to talk about total knee replacements. The patient states she was told that she needed to lose significant weight before they would even consider replacing her knees at the first place that she went to. I did explain to her that most of them will want her to lose some weight before a knee surgery may be done, but think it would benefit her to at least seek out a second opinion and hear those doctors thoughts. The patient is agreeable. She has a friend that is having knee surgery soon and she will contact that surgeon. 4. Dr. Agustin Roth did stop in and see the patient today and signed scripts. Care was given in collaboration with Dr. Agustin Roth today. ��������������������������������������������� <ELECTRONICALLY SIGNED> ���������������������������������������� By: Medina Boyer ��������������������������������������������� 10/25/18 0748 [id number] Medina Boyer /jody
== END ==
LOC: PAIN 06:54
DX: M47.26 Other spondylosis with radiculopathy, lumbar region (principal); M17.0 Bilateral primary osteoarthritis of knee; G89.4 Chronic pain syndrome; E66.01 Morbid (severe) obesity due to excess calories; Z79.891 Long term (current) use of opiate analgesic; Z79.899 Other long term (current) drug therapy; Z68.42 Body mass index [BMI] 45.0-49.9, adult

== ENCOUNTER → 2018-11-14 | Outpatient (CLI) | payer BC, OTHER ==
[~2018-11-14] VITALS: Ht 157.5 cm; Wt 119.6 kg
[2018-11-14 10:02] VITALS: BP 158/83
--- NOTE | 2018-11-14 10:13 | NUR ---
Pain Clinic Assessment: 1. History of Osteoarthritis: kevan knees History of Rheumatoid Arthritis: Not Applicable 2. Height: 5 ft. 2 in. 157.5 cm. Weight: 263.6 lb. oz. 119.568 kg. Patient's BMI: 48.2 3. Vital Signs: BP: 158/83 Pulse: 83 Resp: 16 Temp: 02 Sat: 100 ECG Mon: 4. Pain Intensity: BACK-4, KNEES-8-10 5. Fall Risk: Dizziness: N Needs help standing or walking: N Fallen in the last 3 months: N Fall risk comments: 6. Patient on Blood Thinner: None 7. History of Hypertension: Y 8. Opioid Therapy greater than 6 weeks: Y Opiate Contract Signed: 03/12/16 9. Risk Assessment Tool Provided: LOW RISK 3 10. Functional Assessment Tool: 11. Recreational Drug Use: Never Drug Type: Tobacco Use: Never Smoker Tobacco Type: Amount or Packs/day: How Many Years: Alcohol Use: No Frequency: Quant:
--- NOTE | 2018-11-21 08:15 | HPC ---
[facility] [place] [address] PAIN MANAGEMENT CONSULTATION Name: LEXUS THOMAS Room #: REG [facility] Josiah.#: [id number] Admission: 11/14/18 ������������������ Attend Phys: Agustin Roth DO Discharge: ������������������ Date of : 59 Report #: [id number] THIS REPORT FOR: //name// CC: Ananda Mosqueda DATE OF SERVICE: 11/14/2018 REFERRING PHYSICIAN: Ananda Panchal M.D. CHIEF COMPLAINT: Bilateral knee pain, left greater than right and chronic low back pain. HISTORY OF PRESENT ILLNESS: As you know, the patient is a very pleasant 63-year-old female who returns to our clinic to undergo a left intraarticular knee injection under fluoroscopic guidance. The patient has been advised by multiple physicians that ultimately she will need to have bilateral total knee arthroplasties. The patient's pain began in the right knee and progressively worsened. She began to offload weight from the right knee in a protective measure, which then led to increasing left knee pain. She now experiences left knee pain greater than right, placing pain score at around 8-9/10. She returns today in followup visit requesting to undergo a left intraarticular knee injection under fluoroscopic guidance to determine if her symptoms will improve with such procedures versus moving on with a total knee arthroplasty. ALLERGIES: No known drug allergies. CURRENT MEDICATIONS: Gabapentin, meloxicam, Suboxone, tramadol, Soma, Norvasc, aspirin, lisinopril and omeprazole. PQRS: The patient has known bilateral knee osteoarthritis and lumbar spine osteoarthritis. Denies rheumatoid arthritis. She is placing pain at 8-9/10 bilateral knees, left greater than right. She is a fall risk but has not had a fall in the last 3 months. She is using a gait assistive device. She is not on blood thinners. She is treated for hypertension. She has been on chronic long-term opioid since 2016. She is a ujg-pc-ruyufjyo risk for opioid addiction. She is placing pain impact score 32/70, moderate interference of daily activities secondary to pain. PHYSICAL EXAMINATION: VITAL SIGNS: Blood pressure 158/83, pulse 83 and respiratory rate 16 and unlabored. The patient is 100% on room air. Height 5 feet 2 inches tall, weight 263.6 pounds and BMI calculated 48.2. GENERAL: Well-developed, well-nourished and well-hydrated class 3, morbidly obese 63-year-old female appearing her stated age. Pain is rated anywhere from [address] [address] PAIN MANAGEMENT CONSULTATION Name: LEXUS THOMAS Room #: REG [facility]#: [id number] Admission: 11/14/18 ������������������ Attend Phys: Agustin Roth DO Discharge: ������������������ Date of : 59 Report #: [id number] 8-9/10, left knee greater than right. HEENT: Normocephalic and atraumatic. Pupils equal, round and reactive to light. EXTREMITIES: Show no clubbing, no cyanosis and no edema. MUSCULOSKELETAL: There is palpatory tenderness over the left knee. Active and passive range of motion of both the left and right knee met with increasing pain, crepitus noted with each movement. Pain is elicited with standing from a seated position. ASSESSMENT: 1. Bilateral knee pain, left greater than right. 2. Severe osteoarthritis of the bilateral knees. 3. Severe morbid obesity. 4. Chronic intractable pain. PLAN: 1. The patient has returned today in followup visit requesting a left intraarticular knee injection under fluoroscopic guidance to address her progressively worsening left knee pain. The patient indicates the majority of pain is on the medial aspect of the knee. X-ray imaging did show significant changes of the medial compartment in previous imaging studies. She has been advised by multiple physicians, she would need to undergo total knee arthroplasties bilaterally but due to her excessive weight and her young age, she is not a candidate at present. She returns to undergo intraarticular left knee injection today. We discussed the risks and benefits of left knee injection under fluoroscopic guidance. These risks include but are not necessarily limited to bleeding, bruising, infection, worsening of pain, no relief of pain, also risk of temporary or permanent muscle weakness, temporary or permanent nerve damage, possible joint destruction and . The patient states understood and wished to proceed. 2. No medication changes made at today's visit. The patient will continue current medical therapy as prior prescribed. 3. We will see the patient back in followup visit on an as needed basis for possible intraarticular knee injections. Otherwise, we will see her back for medication management at the previously arranged time. PROCEDURE NOTE DESCRIPTION PROCEDURE: Left intraarticular knee injection under fluoroscopic guidance. After obtaining written consent, the patient was taken back to fluoroscopy suite, placed in a supine position. The knee was placed in comfort and the image intensifier was then brought into position over the knee. AP imaging was [facility] [address] [place] [address] PAIN MANAGEMENT CONSULTATION Name: LEXUS THOMAS Room #: REG Nae Galo#: [id number] Admission: 11/14/18 ������������������ Attend Phys: Agustin Roth DO Discharge: ������������������ Date of : 59 Report #: [id number] obtained to identify and rain the injection position. The skin overlying the area of injection was then prepped and draped in aseptic fashion using chlorhexidine. A 27-gauge 1-1/4 inch needle was then used to anesthetize skin and subcutaneous tissue with 2 mL of 1% lidocaine. A 25-gauge 2-inch needle was then advanced under fluoroscopic guidance into the left knee. We entered the knee without complications. There was no pain or paresthesias with placement. After negative aspiration for heme, 0.5 mL of Omnipaque injected demonstrating an excellent left knee arthrogram. After negative aspiration for heme, 4 mL of a solution containing 1 mL 40 mg per mL, 40 mg total triamcinolone and 3 mL bupivacaine 0.5% injected slowly. Needle then retracted approximately half way, flushed with 1 mL of 1% lidocaine and removed. Sterile bandage placed over injection site. No new motor deficits present in the lower extremity following procedure. The patient tolerated procedure well, carefully escorted to recovery room in stable condition. No apparent complications. After meeting discharge criteria, the patient discharged home. ��������������������������������������������� <ELECTRONICALLY SIGNED> ���������������������������������������� By: Agustin Roth DO ��������������������������������������������� 11/21/18 0815 0827 1054 Agustin Roth DO /nt
== END | disposition home or self-care (01) ==
LOC: PAIN 07:06
DX: M17.0 Bilateral primary osteoarthritis of knee (principal); G89.29 Other chronic pain; E66.01 Morbid (severe) obesity due to excess calories; I10 Essential (primary) hypertension; Z68.42 Body mass index [BMI] 45.0-49.9, adult; Z79.899 Other long term (current) drug therapy; Z79.891 Long term (current) use of opiate analgesic; Z79.82 Long term (current) use of aspirin

== ENCOUNTER → 2018-12-12 | Outpatient (CLI) | payer BC, OTHER ==
[~2018-12-12] VITALS: Ht 157.5 cm; Wt 118.8 kg
--- NOTE | ~2018-12-12 | P ---
[facility] [place] [address] PROCEDURE REPORT Name: LEXUS THOMAS Room #: REG [facility] [id number] Admission: 12/12/18 ������������������ Attend Phys: Agustin Roth DO Discharge: ������������������ Date of : 59 Report #: [id number] THIS REPORT FOR: //name// CC: Ananda Mosqueda DATE OF SERVICE: 12/12/2018 DESCRIPTION OF PROCEDURE: Right intra-articular knee injection under fluoroscopic guidance. After obtaining written consent, the patient was taken back to fluoroscopy suite, placed in a supine position. A pillow was placed under the knee for comfort. The image intensifier was then brought into position over the right knee and x-ray imaging was obtained. The area overlying the lateral aspect of the right knee was then prepped and draped in aseptic fashion using chlorhexidine. A 27-gauge 1/4-inch needle was then used to anesthetize skin and subcutaneous tissue with 2 mL of 1% preservative-free lidocaine. A 25-gauge 2-inch needle was then advanced under fluoroscopic guidance into the lateral aspect of the right knee. Needle entered without complications or pain. After negative aspiration for heme, 0.4 mL of Omnipaque injected. This demonstrated an excellent right knee arthrogram. After negative aspiration for heme, 3 mL of a solution containing 1 mL 40 mg per mL, 40 mg total triamcinolone, 2 mL bupivacaine 0.5% injected slowly. Needle then retracted senior living, flushed with 1 mL bupivacaine 0.5% then removed. Sterile bandage placed over injection site. There were no new motor deficits present in the lower extremity following procedure. The patient tolerated procedure well, carefully escorted to recovery room in stable condition. No apparent complication. After meeting our discharge criteria, the patient discharged home. ��������������������������������������������� ���������������������������������������� By: ��������������������������������������������� 0910 15 Agustin Roth DO /nt
--- NOTE | ~2018-12-12 | HPC ---
[address] [address] PAIN MANAGEMENT CONSULTATION Name: WILLIAMLEXUS Willis [facility] [id number] Admission: 12/12/18 ������������������ Attend Phys: Agustin Roth DO Discharge: ������������������ Date of : 59 Report #: [id number] THIS REPORT FOR: //name// CC: Ananda Mosqueda DATE OF SERVICE: 12/12/2018 CHIEF COMPLAINT: Bilateral knee pain, right greater than left; chronic low back pain. HISTORY OF PRESENT ILLNESS: As you know, the patient is a very pleasant 63-year-old class 3 morbidly obese female who returns today in followup visit requesting to undergo right intra-articular knee injection under fluoroscopic guidance. She reports improvement with the left knee after a knee injection at last visit giving 50% improvement in overall pain. Symptoms tend to remain fairly controlled at this time. She returns to undergo right intra-articular knee injection in hopes of improving pain further. She is placing pain today at 7/10. She denies new injury, new trauma to the bilateral knees. She has yet to seek evaluation from Orthopedics in regards to total knee arthroplasties. She returns for the right intra-articular knee injection today. ALLERGIES: No known drug allergies. CURRENT MEDICATIONS: Gabapentin, meloxicam, Suboxone, tramadol, Soma, Norvasc, aspirin, lisinopril, omeprazole. PQRS: The patient has known osteoarthritic changes of lumbar spine and bilateral knees. No rheumatoid arthritis. She is placing pain intensity today 7/10. She is not a fall risk, does not have fall in the last 3 months. She is not on blood thinners. She has history of hypertension. She is on chronic opioid. She has a low opioid addiction potential. She is placing pain impact score 32/70, moderate interference of daily activities secondary to pain. PHYSICAL EXAMINATION: VITAL SIGNS: Blood pressure 158/92, pulse 90, respiratory rate 16 and unlabored, the patient 99% on room air. Height 5 feet 2 inches tall, weight 262 pounds, BMI calculated 47.9. GENERAL: Well-developed, well-nourished, well-hydrated, class 3, morbidly obese 63-year-old female appearing stated age, pain is rated around 7/10. HEENT: Normocephalic, atraumatic. Pupils equal, round, react to light. EXTREMITIES: Show no clubbing, no cyanosis, and no edema. MUSCULOSKELETAL: Palpatory tenderness is noted over the bilateral knees today. Active and passive range of motion of right knee causes increase in pain and crepitus noted with movement. There is noted displacement of the patella of the [facility] [place] [place] [address] [place] [address] PAIN MANAGEMENT CONSULTATION Name: LEXUS THOMAS Room #: REG CLNae Galo#: [id number] Admission: 12/12/18 ������������������ Attend Phys: Agustin Roth DO Discharge: ������������������ Date of : 59 Report #: [id number] right knee tracking more laterally. Pain is elicited from standing from seated position with weightbearing. ASSESSMENT: 1. Bilateral knee pain. 2. Right knee severe osteoarthritis. 3. Severe morbid obesity. 4. Chronic intractable pain. PLAN: 1. The patient returns today in followup visit requesting to undergo right intra-articular knee injection under fluoroscopic guidance. Our knee injection on the left is providing about 50% improvement in overall pain and the patient has been able to note significant pain improvement on that left side and is hopeful to see similar on the right. She has been advised the risks and benefits of a right intraarticular knee injection today, states she understood and wished to proceed. 2. No medication changes made at today's visit. She received refills of medications 10/24/2018 for 3 months' worth of medication management. We will see her back for medication refills at the previously agreed upon time and date. ��������������������������������������������� ���������������������������������������� By: ��������������������������������������������� 0910 12 Agustin Roth DO /nt
[2018-12-12 12:44] VITALS: BP 158/92
--- NOTE | 2018-12-12 12:57 | NUR ---
Pain Clinic Assessment: 1. History of Osteoarthritis: kevan knees History of Rheumatoid Arthritis: Not Applicable 2. Height: 5 ft. 2 in. 157.5 cm. Weight: 262.0 lb. oz. 118.843 kg. Patient's BMI: 47.9 3. Vital Signs: BP: 158/92 Pulse: 90 Resp: 16 Temp: 02 Sat: 99 ECG Mon: 4. Pain Intensity: BACK-7 5. Fall Risk: Dizziness: N Needs help standing or walking: N Fallen in the last 3 months: N Fall risk comments: 6. Patient on Blood Thinner: None 7. History of Hypertension: Y 8. Opioid Therapy greater than 6 weeks: Y Opiate Contract Signed: 03/12/16 9. Risk Assessment Tool Provided: LOW RISK 3 10. Functional Assessment Tool: 11. Recreational Drug Use: Never Drug Type: Tobacco Use: Never Smoker Tobacco Type: Amount or Packs/day: How Many Years: Alcohol Use: No Frequency: Quant:
== END | disposition home or self-care (01) ==
LOC: PAIN 12-05 07:04
DX: M17.0 Bilateral primary osteoarthritis of knee (principal); G89.29 Other chronic pain; M54.5 Low back pain; Z79.899 Other long term (current) drug therapy; Z68.42 Body mass index [BMI] 45.0-49.9, adult; E66.01 Morbid (severe) obesity due to excess calories; Z98.890 Other specified postprocedural states

== ENCOUNTER → 2018-12-19 | Outpatient (CLI) | payer BC, OTHER ==
[~2018-12-19] VITALS: Ht 157.5 cm; Wt 118.8 kg
[2018-12-19 12:39] VITALS: BP 139/69
--- NOTE | 2018-12-19 12:42 | NUR ---
Pain Clinic Assessment: 1. History of Osteoarthritis: kevan knees History of Rheumatoid Arthritis: Not Applicable 2. Height: 5 ft. 2 in. 157.5 cm. Weight: 262.0 lb. oz. 118.843 kg. Patient's BMI: 47.9 3. Vital Signs: BP: 139/69 Pulse: 69 Resp: 16 Temp: 02 Sat: 99 ECG Mon: 4. Pain Intensity: 4 5. Fall Risk: Dizziness: N Needs help standing or walking: N Fallen in the last 3 months: N Fall risk comments: 6. Patient on Blood Thinner: None 7. History of Hypertension: Y 8. Opioid Therapy greater than 6 weeks: Y Opiate Contract Signed: 03/12/16 9. Risk Assessment Tool Provided: LOW RISK 3 10. Functional Assessment Tool: 11. Recreational Drug Use: Never Drug Type: Tobacco Use: Never Smoker Tobacco Type: Amount or Packs/day: How Many Years: Alcohol Use: No Frequency: Quant:
--- NOTE | 2018-12-20 14:05 | HPC ---
[facility] [place] [address] PAIN MANAGEMENT CONSULTATION Name: WILLIAMLEXUS R Room #: REG Nae Rahman.#: [id number] Admission: 12/19/18 ������������������ Attend Phys: Medina Boyer Discharge: ������������������ Date of : 59 Report #: [id number] THIS REPORT FOR: //name// CC: Medina Mosqueda DATE OF SERVICE: 12/19/2018 CHIEF COMPLAINT: Chronic knee pain and low back pain. HISTORY OF PRESENT ILLNESS: The patient returns to the pain clinic today for refill of her medications. She is a very pleasant 63-year-old that has recently had knee injections with Dr. Agustin Roth. She had the left knee injected about a month ago and the right about 2 weeks ago. She tells me that she is doing significantly better. She is noticing that her pain does not bother her as early in the day. She says the right knee is not quite as good as the left, yet. She is noticing that she is able to be more active before it starts hurting. Her pain score today is 4/10, mostly a chronic burning, aching pain, worse with walking stairs and standing for prolonged periods of time. Her medication and rest is helpful as well as the injections. ALLERGIES: No known drug allergies. MEDICATIONS: Tramadol 50 mg up to 4 times a day p.r.n., Soma 350 mg at bedtime, Suboxone 2/0.5 mg t.i.d., gabapentin 300 mg 2 tablets at bedtime, meloxicam 15 mg daily, phentermine 30 mg every day, Norvasc 5 mg daily, aspirin 81 mg daily, Prilosec daily, lisinopril 20 mg daily. PQRS: 1. She has a history of osteoarthritis in her bilateral knees. Denies any rheumatoid arthritis. Lumbar spine also has osteoarthritis. 2. Height is 5 feet 2 inches, weight is 262, BMI is 47.9. Vital signs 139/69, pulse of 69, respirations 16, oxygen sat is 99. Pain score is 4/10. 3. Fall risk. Denies dizziness, does not need help walking or standing. Has not fallen in the last 3 months. The patient is not on any blood thinners and does have a history of hypertension. 4. Opioid therapy is greater than 6 weeks; therefore, an opioid signed contract is on the chart. Her risk assessment tool is low. Her functional assessment is 32/70. 5. Recreational drug use, she denies. She is not a smoker and does not drink alcohol. We did check the prescription monitoring system. The patient is filling appropriately from Dr. Agustin Roth and tells me that she does safeguard her medications. There is a drug screen on the chart within the past year. PHYSICAL EXAMINATION: [facility] [address] [place] [address] PAIN MANAGEMENT CONSULTATION Name: LEXUS THOMAS Room #: REG LUANNE Galo#: [id number] Admission: 12/19/18 ������������������ Attend Phys: Medina Boyer Discharge: ������������������ Date of : 59 Report #: [id number] GENERAL: This is a well-developed, well-nourished, well-hydrated, class 3, morbidly obese 63-year-old female who appears her stated age. Placing her pain score today at 4/10. HEENT: Normocephalic, atraumatic. Pupils equal, round and reactive to light. EXTREMITIES: No clubbing, no cyanosis, no edema. MUSCULOSKELETAL: She has tenderness over bilateral knees, right is worse than the left. Crepitus is noted in both knees bilaterally. Pain is elicited from standing to sitting position. She does walk with a mild antalgic gait. IMPRESSION: 1. Chronic bilateral knee pain. 2. Osteoarthritis involving bilateral knees. 3. Severe morbid obesity. 4. Chronic intractable pain. 5. Low back pain. We reviewed the fact that opiate medications are being used to provide analgesia adequate to support activities of daily living, not attempting to achieve a specific pain score on the 0-10 Visual Analog Scale. The current opiate medications are providing sufficient analgesia to allow the patient to participate in activities of daily living. The patient is not exhibiting any aberrant behavior suggestive of drug diversion. The patient is not having any adverse reactions to medications. The patient is not suffering from daytime somnolence or mental acuity changes. The patient is managing opiate-induced constipation with appropriate yndt-ces-paxhewe agents and dietary considerations. The patient was counseled on concern for caution with operating a motor vehicle while using opiate medications. A physical exam was performed and the patient's functional status was evaluated. All patients with back pain were advised against the bed rest greater than 4 days and were advised to return to normal activities. Pain score assessment was noted and the treatment plan was reviewed with the patient. All current medications, both prescribed and OTC were reviewed and reconciled on the electronic medical record. Tobacco screening was accomplished and smoking cessation was advised when indicated. BMI was noted and diet/exercise modification was recommended for all patients following outside normal parameters. I reviewed with the patient today their responsibilities to safeguard prescription medications, reviewed their responsibility to utilize medications only as prescribed by the physician. They are to seek and receive pain medications only from 1 physician group ( [facility]). They are to use 1 pharmacy and keep the clinic informed if they change pharmacies. Their responsibilities include making followup visits in a timely fashion and to avoid abrupt discontinuation of medication usage. Their responsibilities further include bringing their medications (bottles from the pharmacy with residual [facility] [address] [place] [address] PAIN MANAGEMENT CONSULTATION Name: WILLIAM,LEXUS Willis Room #: REG SHANENae Rahman.#: [id number] Admission: 12/19/18 ������������������ Attend Phys: Medina Boyer Discharge: ������������������ Date of : 59 Report #: [id number] pills) to the visit for possible confirmation of pill counts and the patient understands it is their responsibility to submit to random drug screens to ensure both that the medications prescribed are present, and that no other controlled substances are present. All prescriptions provided today were generated electronically. PLAN: 1. We discussed treatment options with the patient today. The patient tells me that injections helped in her bilateral knees. She is able to function better. She says that the left knee injection helped 50%. Right knee has helped 30% at this point in the past 2 weeks. She tells me that she is more active and would like her medicines refilled. Scripts given for Suboxone 2/0.5, #90 for today and 4-week release; Soma 350 mg #60 at bedtime with one additional refill; tramadol 50 mg q.i.d. #120 with one additional refill; meloxicam 15 mg #30 with one additional refill and gabapentin 300 mg 2 tablets at bedtime, #60 with one additional refill. 2. The patient will call for an appointment for medications within 2 months' time. 3. The patient is seen in collaboration today with Dr. Agustin Roth. ��������������������������������������������� <ELECTRONICALLY SIGNED> ���������������������������������������� By: Medina Boyer ��������������������������������������������� 12/20/18 1405 1413 2107 Medina Boyer /nt
== END ==
LOC: PAIN 07:04
DX: G89.29 Other chronic pain (principal); M54.5 Low back pain; E66.8 Other obesity; M17.0 Bilateral primary osteoarthritis of knee; Z79.899 Other long term (current) drug therapy; Z79.891 Long term (current) use of opiate analgesic; Z68.42 Body mass index [BMI] 45.0-49.9, adult

== ENCOUNTER → 2019-02-20 | Outpatient (CLI) | payer BC, OTHER ==
[~2019-02-20] VITALS: Ht 157.5 cm; Wt 118.2 kg
[2019-02-20 10:10] VITALS: BP 137/71
--- NOTE | 2019-02-20 10:24 | NUR ---
Pain Clinic Assessment: 1. History of Osteoarthritis: ILATERAL KNESS History of Rheumatoid Arthritis: Not Applicable 2. Height: 5 ft. 2 in. 157.5 cm. Weight: 260.6 lb. oz. 118.208 kg. Patient's BMI: 47.7 3. Vital Signs: BP: 137/71 Pulse: 74 Resp: 16 Temp: 02 Sat: 100 ECG Mon: 4. Pain Intensity: 5 5. Fall Risk: Dizziness: N Needs help standing or walking: N Fallen in the last 3 months: N Fall risk comments: 6. Patient on Blood Thinner: None 7. History of Hypertension: Y 8. Opioid Therapy greater than 6 weeks: Y Opiate Contract Signed: 03/12/16 9. Risk Assessment Tool Provided: LOW RISK 3 10. Functional Assessment Tool: 11. Recreational Drug Use: Never Drug Type: Tobacco Use: Never Smoker Tobacco Type: Amount or Packs/day: How Many Years: Alcohol Use: No Frequency: Quant:
--- NOTE | 2019-02-21 07:53 | HPC ---
[facility] [place] [address] PAIN MANAGEMENT CONSULTATION Name: WILLIAM,LEXUS R Room #: REG Nae Galo#: [id number] Admission: 02/20/19 ������������������ Attend Phys: Medina Boyer Discharge: ������������������ Date of : 59 Report #: [id number] THIS REPORT FOR: //name// CC: Medina Mosqueda DATE OF SERVICE: 02/20/2019 CHIEF COMPLAINT: Chronic knee pain and low back pain. HISTORY OF PRESENT ILLNESS: This is a very pleasant 63-year-old female who returns to the pain clinic today complaining of left knee pain. She tells me it has been severe last week. She states that at times it was 10/10, which is very unusual for her. Normally, it is much lower. She also does complain of mid to lower back pain as well today. She tells me it is a chronic burning, aching, stabbing pain, worse with walking and stairs and prolonged standing, but better with her medications and resting, cold. She denies any feelings of overmedication or constipation. The patient tells me she is having lots of stress in her family life right now, the daughter had a miscarriage and she is taking care of lots of her grandchildren while she is recuperating. This is causing additional activity for her, which has also flared her pain. The patient is hopeful that once things calmed down there that she will be able to do less and her pain will subside again. She does request another injection, though of her left knee. The last one was performed in October. ALLERGIES: No known drug allergies. CURRENT LIST OF MEDICATIONS: Gabapentin 600 mg at bedtime, meloxicam 15 mg daily, tramadol q.i.d., Soma 1-2 at bedtime, Suboxone 2/0.5 mg t.i.d., phentermine 30 mg daily, amlodipine 5 mg daily, aspirin, Prilosec and Zestril 20 mg daily. PQRS: 1. She has a history of osteoarthritis in her bilateral knees and spine. She denies any rheumatoid arthritis. 2. Height is 5 feet 2 inches, weight is 260, BMI is 47. Vital signs 137/71, pulse 74, respirations 16, oxygen sat is 100. Pain score is 5/10. 3. Fall risk. Denies dizziness. She does not need help with walking or standing. She has not fallen in the last 3 months. The patient is not on any blood thinners, but does have a history of hypertension. Her opiate therapy is greater than 6 weeks; therefore, an opiate signed contract is on the chart. Her risk assessment tool is low. Functional assessment 32/70 4. Recreational drug use, she denies. She is not a smoker and does not drink [address] [address] PAIN MANAGEMENT CONSULTATION Name: LEXUS THOMAS Room #: REG [facility].#: [id number] Admission: 02/20/19 ������������������ Attend Phys: Medina Boyer Discharge: ������������������ Date of : 59 Report #: [id number] alcohol. According to the prescription monitoring system, she is filling appropriately for her medications and is due for those today. There is also a recent drug screen on the chart that is appropriate. PHYSICAL EXAMINATION: GENERAL: This is a well-developed, well-nourished 63-year-old female, class 3, morbidly obese. She appears her stated age. Placing her pain score today at 5/10. HEENT: Normocephalic, atraumatic. Pupils equal, round and reactive to light. Mucous membranes are moist. EXTREMITIES: No clubbing, no cyanosis, no edema. MUSCULOSKELETAL: She has tenderness over bilateral knees, left greater than the right. Crepitus is noted in both knees bilaterally. Repositioning from sitting to standing elicits pain. She does walk with a mildly antalgic gait. Lower extremity strength judged to be 4/5 bilaterally. IMPRESSION: 1. Chronic bilateral knee pain. 2. Osteoarthritis involving bilateral knees. 3. Severe morbid obesity. 4. Chronic intractable pain. 5. Low back pain. We reviewed the fact that opiate medications are being used to provide analgesia adequate to support activities of daily living, not attempting to achieve a specific pain score on the 0-10 Visual Analog Scale. The current opiate medications are providing sufficient analgesia to allow the patient to participate in activities of daily living. The patient is not exhibiting any aberrant behavior suggestive of drug diversion. The patient is not having any adverse reactions to medications. The patient is not suffering from daytime somnolence or mental acuity changes. The patient is managing opiate-induced constipation with appropriate ngth-sor-xnnkkdz agents and dietary considerations. The patient was counseled on concern for caution with operating a motor vehicle while using opiate medications. A physical exam was performed and the patient's functional status was evaluated. All patients with back pain were advised against the bed rest greater than 4 days and were advised to return to normal activities. Pain score assessment was noted and the treatment plan was reviewed with the patient. All current medications, both prescribed and OTC were reviewed and reconciled on the electronic medical record. Tobacco screening was accomplished and smoking cessation was advised when indicated. BMI was noted and diet/exercise modification was recommended for all patients following outside normal parameters. [address] [address] PAIN MANAGEMENT CONSULTATION Name: LEXUS THOMAS Room #: REG [facility].#: [id number] Admission: 02/20/19 ������������������ Attend Phys: Medina Boyer Discharge: ������������������ Date of : 59 Report #: [id number] I reviewed with the patient today their responsibilities to safeguard prescription medications, reviewed their responsibility to utilize medications only as prescribed by the physician. They are to seek and receive pain medications only from 1 physician group ( [facility]). They are to use 1 pharmacy and keep the clinic informed if they change pharmacies. Their responsibilities include making followup visits in a timely fashion and to avoid abrupt discontinuation of medication usage. Their responsibilities further include bringing their medications (bottles from the pharmacy with residual pills) to the visit for possible confirmation of pill counts and the patient understands it is their responsibility to submit to random drug screens to ensure both that the medications prescribed are present, and that no other controlled substances are present. All prescriptions provided today were generated electronically. PLAN: 1. We discussed treatment options with the patient today. The patient is here for refill of her medications. Today, scripts are given for tramadol 50 mg, #120 with one additional refill. Suboxone 2/0.5 #90 with one additional refill. Soma, Neurontin and meloxicam were also renewed. 2. The patient has lost a couple pounds since her last visit, and she continues on phentermine. I encouraged her to continue to lose weight, so she can have her knees replaced. The patient tells me she is working towards that goal. 3. Appointment made with Dr. Agustin Roth to have her left knee injected. She had had significant relief from this in the past. Her previous injection in that knee was in early October and at that time, she had at least 50% relief for at least 2 months. 4. The patient is seen in collaboration today with Dr. Agustin Roth who did see the patient as well. ��������������������������������������������� <ELECTRONICALLY SIGNED> ���������������������������������������� By: Medina Boyre ��������������������������������������������� 02/21/19 [id number] Medina Boyer /jody
== END ==
LOC: PAIN 06:44
DX: M17.0 Bilateral primary osteoarthritis of knee (principal); E66.01 Morbid (severe) obesity due to excess calories; G89.4 Chronic pain syndrome; Z79.899 Other long term (current) drug therapy; Z79.82 Long term (current) use of aspirin

== ENCOUNTER → 2019-04-18 | Outpatient (CLI) | payer BC, OTHER ==
[~2019-04-18] VITALS: Ht 157.5 cm; Wt 120.1 kg
[~2019-04-18] MED LIST changes: +MELODETTA 24 F1 EACH PO
--- NOTE | ~2019-04-18 | HPC ---
[facility] [address] [place] [address] PAIN MANAGEMENT CONSULTATION Name: LEXUS THOMAS Room #: REG [facility] Iraj#: [id number] Admission: 04/18/19 Attend Phys: Medina Boyer Discharge: Date of : 59 Report #: [id number] THIS REPORT FOR: //name// CC: Medina Mosqueda DATE OF SERVICE: 04/18/2019 CHIEF COMPLAINT: Chronic low back pain and bilateral knee pain. HISTORY OF PRESENT ILLNESS: This is a very pleasant 63-year-old female who returned to the pain clinic today for a refill of her medications. She is tearful through some of her visit today. She is explaining that that the injections that she had last month from Dr. Roth are not helping as much as they used to. She knows she needs to have her knees replaced. She is going to see Dr. Arteaga next month to discuss a date for her total knee replacement of her left knee first. The patient reports a pain score of 3/10 today. States the medications are very beneficial in controlling her back pain, but her knee pain continues to be bothersome as a constant, aching pain, worse with walking and stairs and helping care for her children and grandchildren. Rest and cold are very beneficial. She denies any problems with constipation or daytime sleepiness. The patient is tearful through part of our meeting today. She tells me that her daughter had another seizure just when she was about to be able to start driving again; therefore, she relies on the patient quite a bit for transportation issues and she also has an 8-month-old, so the patient feels compelled to care for these 2 as well as her other grandchildren and is very worried about what will happen when she needs her surgery and caring for the rest of her family. ALLERGIES: No known drug allergies. CURRENT LIST OF MEDICATIONS: Gabapentin 600 mg at bedtime, meloxicam 15 mg daily, tramadol 50 mg 4 times a day, Soma 350 two at bedtime, Suboxone 2/0.5 t.i.d., amlodipine 5 mg daily, aspirin 81 mg daily, omeprazole 20 mg daily and lisinopril 20 mg daily. PATIENT'S PQRS: 1. She has arthritic changes in her bilateral knees and her spine. She denies any rheumatoid arthritis. 2. Height is 5 feet 2 inches, weight is 264, BMI is 48. 3. Vital signs 160/85, pulse is 73, respirations 18, oxygen sat is 99. 4. Pain score is 3/10. 5. Denies dizziness, does not need help walking or standing, has not fallen in the last 3 months. 6. The patient is not on any blood thinners or any hypertension medicines. [facility] [address] [place] [address] PAIN MANAGEMENT CONSULTATION Name: LEXUS THOMAS Room #: REG CLNae Galo#: [id number] Admission: 04/18/19 Attend Phys: Medina Boyer Discharge: Date of : 59 Report #: [id number] 7. Opiate therapy is greater than 6 weeks; therefore, an opioid signed contract is on the chart. Risk assessment tool is low. Functional assessment is 32/70. 8. Recreational drug use, she denies, not a smoker and does not drink alcohol. According to the prescription monitoring system, the patient is filling appropriately for her medications, she is due for those today. There is a recent drug screen on the chart that is appropriate as well. PHYSICAL EXAMINATION: GENERAL: This is a well-developed, well-nourished, well-hydrated, class 3 morbidly obese 63-year-old female who appears her stated age, placing her current pain score today at 3/10. HEENT: Normocephalic, atraumatic. Extraocular eye muscles are intact. Mucous membranes are moist. EXTREMITIES: No clubbing, no cyanosis, no edema. MUSCULOSKELETAL: She walks with an antalgic gait favoring her left lower extremity over the right lower extremity, strength appears symmetrical, but deconditioned bilaterally. The patient complains of pain in bilateral knees, left greater than right currently, pain is elicited with standing from a seated position. The patient also complains of lumbar back pain and tenderness across her lumbar spine. ASSESSMENT: 1. Bilateral knee osteoarthritis. 2. Bilateral knee pain. 3. Severe morbid obesity. 4. Chronic low back pain. 5. Chronic intractable pain. 6. Management of opioid medications under terms of written agreement. We reviewed the fact that opiate medications are being used to provide analgesia adequate to support activities of daily living, not attempting to achieve a specific pain score on the 0-10 Visual Analog Scale. The current opiate medications are providing sufficient analgesia to allow the patient to participate in activities of daily living. The patient is not exhibiting any aberrant behavior suggestive of drug diversion. The patient is not having any adverse reactions to medications. The patient is not suffering from daytime somnolence or mental acuity changes. The patient is managing opiate-induced constipation with appropriate fgmi-wzz-guwvxxg agents and dietary considerations. The patient was counseled on concern for caution with operating a motor vehicle while using opiate medications. A physical exam was performed and the patient's functional status was evaluated. All patients with back pain were advised against the bed rest greater than 4 days and were advised to return to normal activities. Pain score assessment was noted and the treatment plan was reviewed with the patient. All current [facility] [address] [place] [address] PAIN MANAGEMENT CONSULTATION Name: LEXUS THOMAS Room #: REG [facility].#: [id number] Admission: 04/18/19 Attend Phys: Medina Boyer Discharge: Date of : 59 Report #: [id number] medications, both prescribed and OTC were reviewed and reconciled on the electronic medical record. Tobacco screening was accomplished and smoking cessation was advised when indicated. BMI was noted and diet/exercise modification was recommended for all patients following outside normal parameters. I reviewed with the patient today their responsibilities to safeguard prescription medications, reviewed their responsibility to utilize medications only as prescribed by the physician. They are to seek and receive pain medications only from 1 physician group ( [facility]). They are to use 1 pharmacy and keep the clinic informed if they change pharmacies. Their responsibilities include making followup visits in a timely fashion and to avoid abrupt discontinuation of medication usage. Their responsibilities further include bringing their medications (bottles from the pharmacy with residual pills) to the visit for possible confirmation of pill counts and the patient understands it is their responsibility to submit to random drug screens to ensure both that the medications prescribed are present, and that no other controlled substances are present. All prescriptions provided today were generated electronically. PLAN: 1. We discussed treatment options with the patient today. I explained to her that she does need to help care for her family but she needs to put herself first and have her knee replacement, so she will be better able to help care for her family in the future. The patient verbalizes understanding, though she said it is hard not taking care of them because that is "what she does." The patient does have an appointment with Dr. Arteaga in the next month. I encouraged her to have a surgery date scheduled before she leaves the office and then have a family meeting explaining to her family that she needs to have her surgery done this year, so she can have her right knee done next year when it is slower at work, so she will be able to better care for her family in the future. The patient verbalizes understanding. The patient finds that the left knee injection was not as beneficial as it had been in the past, not lasting as long as previous injections from Dr. Agustin Roth into her intra-articular joint. 2. Scripts given today for meloxicam 15 mg, #30 with 1 refill, tramadol 50 mg, #120 with 1 refill, Soma 350 mg 2 at bedtime, #60 with 1 refill, Suboxone 2/0.5, #90 for today and 4-week release and gabapentin 300 mg, #60 with 1 refill. 3. We did talk briefly about postoperative pain control. I encouraged her to make an appointment with Dr. Agustin Roth or myself after she has her surgery date, so we can put a plan in place for her preoperative and postoperative plan of care for her opioids. I encouraged the patient even if her scripts are not out and not due for medications to still make this appointment. The patient verbalizes understanding. [address] [address] PAIN MANAGEMENT CONSULTATION Name: LEXUS THOMAS Room #: REG LUANNE Galo#: [id number] Admission: 04/18/19 Attend Phys: Medina Boyer Discharge: Date of : 59 Report #: [id number] The patient was seen in collaboration today with Dr. Agustin Roth. By: [id number] Medina Boyer /jody
[2019-04-18 10:53] VITALS: BP 160/85
--- NOTE | 2019-04-18 11:04 | NUR ---
Pain Clinic Assessment: 1. History of Osteoarthritis: ILATERAL KNESS History of Rheumatoid Arthritis: Not Applicable 2. Height: 5 ft. 2 in. 157.5 cm. Weight: 264.8 lb. oz. 120.113 kg. Patient's BMI: 48.4 3. Vital Signs: BP: 160/85 Pulse: 73 Resp: 18 Temp: 02 Sat: 99 ECG Mon: 4. Pain Intensity: 3 5. Fall Risk: Dizziness: N Needs help standing or walking: N Fallen in the last 3 months: N Fall risk comments: 6. Patient on Blood Thinner: None 7. History of Hypertension: Y 8. Opioid Therapy greater than 6 weeks: Y Opiate Contract Signed: 03/12/16 9. Risk Assessment Tool Provided: LOW RISK 3 10. Functional Assessment Tool: 11. Recreational Drug Use: Never Drug Type: Tobacco Use: Never Smoker Tobacco Type: Amount or Packs/day: How Many Years: Alcohol Use: No Frequency: Quant:
== END ==
LOC: PAIN 06:46
DX: M17.0 Bilateral primary osteoarthritis of knee (principal); E66.01 Morbid (severe) obesity due to excess calories; M54.5 Low back pain; Z79.891 Long term (current) use of opiate analgesic

== ENCOUNTER → 2019-06-13 | Outpatient (CLI) | payer BC, OTHER ==
[~2019-06-13] VITALS: Ht 157.5 cm; Wt 120.4 kg
[~2019-06-13] MED LIST changes: +MELOXICAM15 MG PO; +NEURONTIN 300M300 M2 PO; +SOMA350 MG PO
[2019-06-13 10:19] VITALS: BP 154/99
--- NOTE | 2019-06-13 10:34 | NUR ---
Pain Clinic Assessment: 1. History of Osteoarthritis: B/L KNEES History of Rheumatoid Arthritis: Not Applicable 2. Height: 5 ft. 2 in. 157.5 cm. Weight: 265.4 lb. oz. 120.385 kg. Patient's BMI: 48.5 3. Vital Signs: BP: 154/99 Pulse: 78 Resp: 16 Temp: 02 Sat: 100 ECG Mon: 4. Pain Intensity: 4 5. Fall Risk: Dizziness: N Needs help standing or walking: N Fallen in the last 3 months: N Fall risk comments: 6. Patient on Blood Thinner: None 7. History of Hypertension: Y 8. Opioid Therapy greater than 6 weeks: Y Opiate Contract Signed: 03/12/16 9. Risk Assessment Tool Provided: LOW RISK 3 10. Functional Assessment Tool: 11. Recreational Drug Use: Never Drug Type: Tobacco Use: Never Smoker Tobacco Type: Amount or Packs/day: How Many Years: Alcohol Use: No Frequency: Quant:
--- NOTE | 2019-06-14 08:48 | HPC ---
[facility] [place] [address] PAIN MANAGEMENT CONSULTATION Name: WILLIAM,LEXUS Willis [id number] Admission: 06/13/19 Attend Phys: Median Boyer Discharge: Date of : 59 Report #: [id number] THIS REPORT FOR: //name// CC: Medina HAYES DO ANALILIA Mosqueda DATE OF SERVICE: 06/13/2019 CHIEF COMPLAINT: Chronic low back pain and bilateral knee pain. HISTORY OF PRESENT ILLNESS: This is a very pleasant 63-year-old female who returns to the pain clinic today for refill of her medications that she uses to help treat her ongoing low back pain, the most specifically her bilateral knee pain. The patient reports a pain score of 4/10 today and is a burning, aching, stabbing pain that is worse with walking, better with her medications as well as cold and rest. She reports that she does have a surgery date scheduled for 08/07/[address] Arteaga to have one knee replaced. She has been busy getting her preop clearances performed. She will have a visit with the anesthesiologist soon and I would also like to discuss with Dr. Agustin Hayes postoperative pain control prior to her surgery. Today, she is here for medication refills. ALLERGIES: No known drug allergies. CURRENT LIST OF MEDICATIONS: Meloxicam 15 mg daily, gabapentin 600 mg at bedtime, tramadol 50 mg q.i.d., Soma 350 mg 2 at bedtime, Suboxone 2/0.5 mg t.i.d., phentermine 30 mg daily, amlodipine 5 mg daily, aspirin 81 mg daily, Prilosec 20 mg daily and lisinopril 20 mg daily. PQRS: 1. She has osteoarthritis in her bilateral knees. Denies any rheumatoid arthritis. 2. Height is 5 feet 2 inches, weight is 265, BMI is 48. 3. Vital signs, 154/99, pulse is 78, respirations 16, oxygen sat is 100. 4. Pain score is 4/10. 5. Denies dizziness, does not need help walking, has not fallen in the last 3 months. 6. The patient is not on any blood thinners, but does take medicine for hypertension. 7. Opioid therapy is greater than 6 weeks; therefore, an opioid signed contract is on the chart. Her risk assessment tool is low. Functional assessment is 32/70. 8. Recreational drug use, she denies. She is not a smoker and [place] [address] PAIN MANAGEMENT CONSULTATION Name: LEXUS THOMAS Room #: REG [facility] Iraj#: [id number] Admission: 06/13/19 Attend Phys: Medina Boyer Discharge: Date of : 59 Report #: [id number] According to the prescription monitoring system, the patient is filling appropriately for her medications. There is a recent drug screen on the chart as well that is appropriate for her medications. PHYSICAL EXAMINATION: GENERAL: This is alert and orientated, well-developed, well-nourished, class 3 morbid obese 63-year-old female who appears her stated age, placing her current pain score 4/10. HEENT: Normocephalic, atraumatic. Extraocular eye muscles are intact. Mucous membranes are moist. EXTREMITIES: No clubbing, no cyanosis, no edema. MUSCULOSKELETAL: Bilateral knee pain and tenderness, left greater than the right. Pain is elicited with standing from a seated position. The patient walks with an antalgic gait. She has lumbosacral tenderness. ASSESSMENT: 1. Bilateral knee osteoarthritis. 2. Bilateral knee pain. 3. Severe morbid obesity. 4. Chronic low back pain. 5. Chronic intractable pain. 6. Management of high-risk medications under terms of written opioid agreement. We reviewed the fact that opiate medications are being used to provide analgesia adequate to support activities of daily living, not attempting to achieve a specific pain score on the 0-10 Visual Analog Scale. The current opiate medications are providing sufficient analgesia to allow the patient to participate in activities of daily living. The patient is not exhibiting any aberrant behavior suggestive of drug diversion. The patient is not having any adverse reactions to medications. The patient is not suffering from daytime somnolence or mental acuity changes. The patient is managing opiate-induced constipation with appropriate zykj-gsf-rrgtgam agents and dietary considerations. The patient was counseled on concern for caution with operating a motor vehicle while using opiate medications. A physical exam was performed and the patient's functional status was evaluated. All patients with back pain were advised against the bed rest greater than 4 days and were advised to return to normal activities. Pain score assessment was noted and the treatment plan was reviewed with the patient. All current medications, both prescribed and OTC were reviewed and reconciled on the electronic medical record. Tobacco screening was accomplished and smoking cessation was advised when indicated. BMI was noted and diet/exercise modification was recommended for all patients following outside normal parameters. [facility] [address] [place] [address] PAIN MANAGEMENT CONSULTATION Name: LEXUS THOMAS Room #: REG [facility] Galo#: [id number] Admission: 06/13/19 Attend Phys: Medina Boyer Discharge: Date of : 59 Report #: [id number] I reviewed with the patient today their responsibilities to safeguard prescription medications, reviewed their responsibility to utilize medications only as prescribed by the physician. They are to seek and receive pain medications only from 1 physician group ( [facility]). They are to use 1 pharmacy and keep the clinic informed if they change pharmacies. Their responsibilities include making followup visits in a timely fashion and to avoid abrupt discontinuation of medication usage. Their responsibilities further include bringing their medications (bottles from the pharmacy with residual pills) to the visit for possible confirmation of pill counts and the patient understands it is their responsibility to submit to random drug screens to ensure both that the medications prescribed are present, and that no other controlled substances are present. All prescriptions provided today were generated electronically. PLAN: 1. We discussed treatment options with the patient today. The patient is scheduled for surgery on 08/07/2019. We discussed briefly that she may need to go off her Suboxone for several days prior to surgery due to the naloxone binding with her receptors. She will schedule an appointment with Dr. Agustin Hayes prior to surgery to discuss options. I also discussed with her possibly stopping her meloxicam prior to surgery, as is required by several surgeons. The patient was instructed to contact Dr. Arteaga's office to see when she was to stop that medication. 2. Scripts given for gabapentin 300 mg, #60, 2 at bedtime with 1 additional refill; meloxicam 15 mg daily, #30, with 1 additional refill; Suboxone 2/0.5 t.i.d., #90, for today and 4-week release; Soma 350 mg 1-2 at bedtime, #60, with 1 additional refill and tramadol 50 mg q.i.d., #120, with 1 additional refill. 3. The patient denies any problems with constipation. We did discuss the possibility of constipation issues with increase of pain medications after surgery as well as with her decreased mobility that she will experience. We discussed MiraLax as well as Senokot. 4. Appointment made with Dr. Agustin Hayes for 07/31/2019, which is a week prior to her surgery date. 5. The patient is seen in collaboration with Dr. Agustin Hayes. <ELECTRONICALLY SIGNED> By: Medina Boeyr 06/14/19 0848 [id number] Mdeina Boyer /nt
== END ==
LOC: PAIN 07:09
DX: M17.0 Bilateral primary osteoarthritis of knee (principal); E66.01 Morbid (severe) obesity due to excess calories; M54.5 Low back pain; G89.4 Chronic pain syndrome; Z79.891 Long term (current) use of opiate analgesic

== ENCOUNTER → 2019-07-31 | Outpatient (CLI) | payer BC, OTHER ==
[~2019-07-31] VITALS: Ht 157.5 cm; Wt 116.8 kg
[~2019-07-31] MED LIST changes: +GABAPENTIN600 M1 PO
[2019-07-31 12:44] VITALS: BP 173/106
--- NOTE | 2019-07-31 12:56 | NUR ---
Pain Clinic Assessment: 1. History of Osteoarthritis: B/L KNEES BACK History of Rheumatoid Arthritis: Not Applicable 2. Height: 5 ft. 2 in. 157.5 cm. Weight: 257.6 lb. oz. 116.847 kg. Patient's BMI: 47.1 3. Vital Signs: BP: 173/106 Pulse: 85 Resp: 18 Temp: 02 Sat: 99 ECG Mon: 4. Pain Intensity: 7 5. Fall Risk: Dizziness: N Needs help standing or walking: N Fallen in the last 3 months: N Fall risk comments: 6. Patient on Blood Thinner: None 7. History of Hypertension: Y 8. Opioid Therapy greater than 6 weeks: Y Opiate Contract Signed: 03/12/16 9. Risk Assessment Tool Provided: LOW RISK 0/3 10. Functional Assessment Tool: 11. Recreational Drug Use: Never Drug Type: Tobacco Use: Never Smoker Tobacco Type: Amount or Packs/day: How Many Years: Alcohol Use: No Frequency: Quant:
--- NOTE | 2019-08-01 14:19 | HPC ---
[facility] [address] [place] [address] PAIN MANAGEMENT CONSULTATION Name: WILLIAM,LEXUS R Room #: REG [facility] Iraj#: [id number] Admission: 07/31/19 Attend Phys: Medina Boyer Discharge: Date of : 59 Report #: [id number] THIS REPORT FOR: //name// CC: Medina Mosqueda DATE OF SERVICE: 07/31/2019 CHIEF COMPLAINT: Chronic low back pain and bilateral knee pain. HISTORY OF PRESENT ILLNESS: This is a very pleasant 64-year-old female who returns to the pain clinic today to discuss postoperative pain management control prior to her left knee replacement next week with Dr. Carloz Arteaga. She is rating her pain score today at 7/10 and pain is located in her lower back as well as her bilateral knees, left knee greater than the right. It is a constant aching and burning pain that is increased with walking, standing for a prolonged period of time as well as climbing stairs. She finds her medication beneficial as well as resting. The patient reports that she fell tripping over a grandchild toy on Tuesday. She has had some increased pain since this fall last week. The patient reports that she has been off of her meloxicam prior to surgery and is here to discuss postop care for her medications as we instructed her to do at her last visit. She denies any problems with constipation or daytime sleepiness from her current regimen. ALLERGIES: No known drug allergies. CURRENT LIST OF MEDICATIONS: Gabapentin 300 mg 2 at bedtime, tramadol 50 mg up to 4 times a day, Soma 350 mg 1-2 at bedtime, Suboxone 2/0.5, amlodipine 5 mg daily, Prilosec, lisinopril 20 mg daily. PQRS: 1. She has a history of arthritic changes in her bilateral knees and lumbar spine. Denies any rheumatoid arthritis. 2. Height is 5 feet 2 inches, weight is 257, BMI is 47. This is a decrease in weight of 8 pounds since our last visit. 3. Vital signs: 173/106, pulse is 85, respirations 18, oxygen sat is 99. 4. Pain score 7/10. 5. Denies dizziness, does not need help with walking or standing, has fallen in the last 3 months. 6. The patient is not on any blood thinners, but does take medicine for hypertension. [address] [address] PAIN MANAGEMENT CONSULTATION Name: WILLIAMLEXUS Willis Room #: REG [facility] Iraj#: [id number] Admission: 07/31/19 Attend Phys: Medina Boyer Discharge: Date of : 59 Report #: [id number] 7. Opioid therapy is greater than 6 weeks; therefore, an opioid signed contract is on the chart. 8. Risk assessment tool is low. Functional assessment is 70. 9. Recreational drug use, she denies. She is not a smoker and does not drink alcohol. According to the prescription monitoring system, the patient is filling her medications appropriately and will be due for these medications soon. According to the note, she safeguards her meds at all times. There is a recent drug screen on the chart that is appropriate for her medications as well. PHYSICAL EXAMINATION: GENERAL: This is alert and orientated, well-developed, well-nourished class 3, morbidly obese 64-year-old female who appears her stated age, placing her current pain score today at 7/10. She is a good historian. HEENT: Normocephalic, atraumatic. Extraocular eye muscles are intact. Mucous membranes are moist. EXTREMITIES: No clubbing, no cyanosis, no edema. MUSCULOSKELETAL: She has tenderness in her lumbosacral region of her spine. She has tenderness in her bilateral knees, left greater than the right. Pain is elicited with standing. The patient walks with an antalgic gait. Lower extremity strength judged to be 5/5 in all major muscle groups. ASSESSMENT: 1. Bilateral knee osteoarthritis. 2. Bilateral knee pain. 3. Severe morbidly obesity. 4. Chronic low back pain. 5. Chronic intractable pain. 6. Management of high risk medications under terms of written opioid agreement. We reviewed the fact that opiate medications are being used to provide analgesia adequate to support activities of daily living, not attempting to achieve a specific pain score on the 0-10 Visual Analog Scale. The current opiate medications are providing sufficient analgesia to allow the patient to participate in activities of daily living. The patient is not exhibiting any aberrant behavior suggestive of drug diversion. The patient is not having any adverse reactions to medications. The patient is not suffering from daytime somnolence or mental acuity changes. The patient is managing opiate-induced constipation with appropriate kudt-yjk-dvmpqsk agents and dietary considerations. The patient was counseled on concern for caution with operating a motor vehicle while using opiate medications. A physical exam was performed and the patient's functional status was evaluated. All patients with back pain were advised against the bed rest greater than 4 days and were advised to return to normal activities. Pain score assessment was [address] [address] PAIN MANAGEMENT CONSULTATION Name: LEXUS THOMAS Room #: REG [facility] Galo#: [id number] Admission: 07/31/19 Attend Phys: Medina Boyer Discharge: Date of : 59 Report #: [id number] noted and the treatment plan was reviewed with the patient. All current medications, both prescribed and OTC were reviewed and reconciled on the electronic medical record. Tobacco screening was accomplished and smoking cessation was advised when indicated. BMI was noted and diet/exercise modification was recommended for all patients following outside normal parameters. I reviewed with the patient today their responsibilities to safeguard prescription medications, reviewed their responsibility to utilize medications only as prescribed by the physician. They are to seek and receive pain medications only from 1 physician group ( [facility]). They are to use 1 pharmacy and keep the clinic informed if they change pharmacies. Their responsibilities include making followup visits in a timely fashion and to avoid abrupt discontinuation of medication usage. Their responsibilities further include bringing their medications (bottles from the pharmacy with residual pills) to the visit for possible confirmation of pill counts and the patient understands it is their responsibility to submit to random drug screens to ensure both that the medications prescribed are present, and that no other controlled substances are present. All prescriptions provided today were generated electronically. PLAN: 1. We discussed treatment options with the patient today. Her surgery with Dr. Carloz Arteaga is scheduled for 08/07/2019. We instructed her to stop her Suboxone today. This will cause her some increase in pain for the next few days, but we explained to her that through surgery and postoperatively she will have better pain control with not having the naloxone in her system. The patient is to continue her tramadol 4 times a day until surgery. 2. The patient has already stopped her meloxicam prior to surgery under orders of Dr. Arteaga. We instructed her to call when she does need this refilled when she is cleared to restart this from Dr. Arteaga. 3. We explained to the patient that we will allow Dr. Arteaga to prescribe postop pain medications for her until he releases her. I explained to her that she will need to tell her pharmacy that she will be getting a few prescriptions from him for this duration and she will not be on Suboxone. Typically, postop pain may be controlled by Percocet 10/325 four times a day for 2 weeks, then decrease to 5/325 three times a day for a week and then taper down from there, but we will leave this to Dr. Arteaga's discretion. We did inform the patient that we are unsure if she will even restart the Suboxone postoperatively after rehab. The patient feels that medication is most beneficial for her lower back pain. I explained to her, we will discuss that in followup visits in the New Year. 4. Scripts electronically sent today for gabapentin 300 mg 2 at bedtime, #60 with 1 additional refill; Soma 350, 1-2 at bedtime, #60 with 1 refill; and tramadol 50 mg, #120, with 1 additional refill. [address] [address] PAIN MANAGEMENT CONSULTATION Name: LEXUS THOMAS Room #: REG [facility] Galo#: [id number] Admission: 07/31/19 Attend Phys: Medina Boyer Discharge: Date of : 59 Report #: [id number] Agustin Roth did see the patient as well today and collaborated care. The patient is instructed to call as needed. <ELECTRONICALLY SIGNED> By: Medina Boyer 08/01/19 1419 [id number] [id number] Medina Boyer /jody
== END ==
LOC: PAIN 06:56
DX: M17.0 Bilateral primary osteoarthritis of knee (principal); E66.01 Morbid (severe) obesity due to excess calories; M54.5 Low back pain; G89.4 Chronic pain syndrome; Z79.891 Long term (current) use of opiate analgesic; Z79.899 Other long term (current) drug therapy; Z88.8 Allergy status to other drugs, medicaments and biological substances

== ENCOUNTER → 2019-10-10 | Outpatient (CLI) | payer BC, OTHER ==
[~2019-10-10] VITALS: Ht 157.5 cm; Wt 121.4 kg
[2019-10-10 13:17] VITALS: BP 169/93
--- NOTE | 2019-10-10 13:40 | NUR ---
Pain Clinic Assessment: 1. History of Osteoarthritis: B/L KNEES BACK History of Rheumatoid Arthritis: Not Applicable 2. Height: 5 ft. 2 in. 157.5 cm. Weight: 267.6 lb. oz. 121.383 kg. Patient's BMI: 48.9 3. Vital Signs: BP: 169/93 Pulse: 81 Resp: 16 Temp: 02 Sat: 100 ECG Mon: 4. Pain Intensity: 5 5. Fall Risk: Dizziness: N Needs help standing or walking: N Fallen in the last 3 months: N Fall risk comments: 6. Patient on Blood Thinner: None 7. History of Hypertension: Y 8. Opioid Therapy greater than 6 weeks: Y Opiate Contract Signed: 03/12/16 9. Risk Assessment Tool Provided: LOW RISK 0/3 10. Functional Assessment Tool: 11. Recreational Drug Use: Never Drug Type: Tobacco Use: Never Smoker Tobacco Type: Amount or Packs/day: How Many Years: Alcohol Use: No Frequency: Quant:
--- NOTE | 2019-10-16 07:54 | HPC ---
[facility] [place] [address] PAIN MANAGEMENT CONSULTATION Name: LEXUS THOMAS Room #: REG [facility] Iraj#: [id number] Admission: 10/10/19 Attend Phys: Medina Boyer Discharge: Date of : 59 Report #: [id number] THIS REPORT FOR: cc: Jaziel Mosqueda MD,Jaziel Boyer,Medina LINDSEY ~ THIS REPORT FOR: //name// CC: Medina Mosqueda DATE OF SERVICE: 10/10/2019 CHIEF COMPLAINT: Chronic low back pain, bilateral knee pain. HISTORY OF PRESENT ILLNESS: This is a very pleasant 64-year-old female who returns to the pain clinic today. The patient is reporting a pain score of 5/10 today. She recently underwent a left total knee replacement in July. She reports she is doing quite well with her therapy. She currently goes twice a week. Her current extension of her knee is 102 degrees. The therapist is hopeful to have her at a 110 prior to discharged from therapy. She continues to do her exercises at home and feels like it is strengthening her right leg as well as her left. Her plan is to have her right knee replaced in June of this year. She continues to have an aching, sharp pain that is worse with walking and stairs. She believes all of her medications are very beneficial as well as rest and cold. She has been using ice on her knees bilaterally since surgery. Denies any problems with constipation or daytime sleepiness. ALLERGIES: No known drug allergies. MEDICATIONS: Tramadol 50 mg q.i.d. p.r.n., Soma 350 mg 1-2 at bedtime, gabapentin 600 mg 2 tablets at bedtime, meloxicam 15 mg daily, Suboxone 2/0.5 t.i.d., phentermine, amlodipine, aspirin, Prilosec, and Zestril. PQRS: 1. She has osteoarthritis in her spine and bilateral knees. Denies rheumatoid arthritis. 2. Height is 5 feet 2 inches, weight is 267, BMI is 48. 3. Vital signs, blood pressure 169/93, pulse is 81, respirations 16, and oxygen sat is 100. 4. Pain score is 5/10. 5. Denies dizziness, does not need help walking or standing, has not fallen in the last 3 months. 6. The patient is not on any blood thinners. She does take medicine for hypertension. 7. Opioid therapy is greater than 6 weeks; therefore, [place] [address] PAIN MANAGEMENT CONSULTATION Name: LEXUS THOMAS [facility] [id number] Admission: 10/10/19 Attend Phys: Medina Boyer Discharge: Date of : 59 Report #: [id number] is on the chart. Risk assessment tool is low. Functional assessment is . 9. Recreational drug use, she denies. She is not a smoker and does not drink alcohol. According to the prescription monitoring system, the patient did fill some medicines from her surgeon postoperatively. Otherwise, she is filling appropriately from Dr. Agustin Roth. PHYSICAL EXAMINATION: GENERAL: This is alert and orientated 64-year-old female, class 3, morbidly obese, who appears her stated age, placing her current pain score at 5/10 today. HEENT: Normocephalic, atraumatic. Extraocular eye muscles are intact. Mucous membranes are moist. EXTREMITIES: No clubbing, no cyanosis. Slight edema in her left knee. MUSCULOSKELETAL: She has tenderness bilaterally in her knees on the right greater than the left. She has a well-healed approximated scar on her left knee. Pain is elicited with standing and walking. The patient walks with a slightly antalgic gait. She does have pain in the lumbosacral region of her back as well. ASSESSMENT: 1. Bilateral knee pain. 2. Bilateral knee osteoarthritis. 3. Severe morbidly obesity. 4. Chronic low back pain. 5. Chronic intractable pain. 6. Management of high risk medications under terms of written opioid agreement. We reviewed the fact that opiate medications are being used to provide analgesia adequate to support activities of daily living, not attempting to achieve a specific pain score on the 0-10 Visual Analog Scale. The current opiate medications are providing sufficient analgesia to allow the patient to participate in activities of daily living. The patient is not exhibiting any aberrant behavior suggestive of drug diversion. The patient is not having any adverse reactions to medications. The patient is not suffering from daytime somnolence or mental acuity changes. The patient is managing opiate-induced constipation with appropriate ezwn-ooq-xctstxi agents and dietary considerations. The patient was counseled on concern for caution with operating a motor vehicle while using opiate medications. PLAN: 1. We discussed treatment options with the patient today. The patient is doing quite well from her total left knee replacement. Continues therapy twice a week, working on strengthening and range of motion in her left knee as well as her right. The patient is hopeful to have her other knee replaced later this year. [facility] [address] [place] [address] PAIN MANAGEMENT CONSULTATION Name: LEXUS THOMAS Room #: REG [facility]NE Galo#: [id number] Admission: 10/10/19 Attend Phys: Medina Boyer Discharge: Date of : 59 Report #: [id number] 2. The patient is needing all medications. She has been out of her Soma a couple of days, was slightly upset with the fact that we would not call that in. She is due for all of her medications, so they encouraged her to make an appointment. Today, we will refill her tramadol 50 mg 4 times a day, #120 with one additional refill. We did discuss that in the future, we may try to decrease this medication as her pain generators decrease. We will continue at her current dose for this 2 months. 3. We will refill Suboxone 2/0.5 t.i.d., #90 with one additional refill. Script was also sent electronically for gabapentin 300 mg 2 tablets, #60 with 5 refills, Soma 350 mg 1-2 tablets at bedtime, quantity 60 with 5 additional refills, meloxicam 15 mg every day, #30 with 5 additional refills. 4. The patient is seen today in collaboration with Dr. Agustin Roth. The patient will return in 2 months for her medication appointments. Dr. Agustin Roth collaborated care today. <ELECTRONICALLY SIGNED> By: Medina Boyer 10/16/19 0754 [id number] [id number] Medina Boyer /nt
== END ==
LOC: PAIN 06:49
DX: M17.0 Bilateral primary osteoarthritis of knee (principal); G89.29 Other chronic pain; M54.5 Low back pain; E66.01 Morbid (severe) obesity due to excess calories; Z79.899 Other long term (current) drug therapy

== ENCOUNTER → 2020-02-05 | Outpatient (CLI) | payer BC, OTHER ==
[~2020-02-05] VITALS: Ht 157.5 cm; Wt 123.0 kg
[2020-02-05 09:08] VITALS: BP 130/92
--- NOTE | 2020-02-05 09:13 | NUR ---
Pain Clinic Assessment: 1. History of Osteoarthritis: B/L KNEES BACK History of Rheumatoid Arthritis: Not Applicable 2. Height: 5 ft. 2 in. 157.5 cm. Weight: 271.2 lb. oz. 123.016 kg. Patient's BMI: 49.6 3. Vital Signs: BP: 130/92 Pulse: 84 Resp: 18 Temp: 02 Sat: 99 ECG Mon: 4. Pain Intensity: 7 5. Fall Risk: Dizziness: N Needs help standing or walking: N Fallen in the last 3 months: N Fall risk comments: 6. Patient on Blood Thinner: None 7. History of Hypertension: Y 8. Opioid Therapy greater than 6 weeks: Y Opiate Contract Signed: 03/12/16 9. Risk Assessment Tool Provided: LOW RISK 0/3 10. Functional Assessment Tool: 11. Recreational Drug Use: Never Drug Type: Tobacco Use: Never Smoker Tobacco Type: Amount or Packs/day: How Many Years: Alcohol Use: No Frequency: Quant:
--- NOTE | 2020-02-05 14:20 | HPC ---
[facility] [place] [address] [address] [place] [address] PAIN MANAGEMENT CONSULTATION Name: LEXUS THOMAS Room #: REG [facility].#: [id number] Admission: 02/05/20 Attend Phys: Medina Boyer Discharge: Date of : 59 Report #: [id number] THIS REPORT FOR: cc: Jaziel Mosqueda MD, Steven J. MD Hocker,Medina LINDSEY ~ CC: Agustin Roth DO DATE OF SERVICE: 02/05/2020 CHIEF COMPLAINT: Chronic low back pain, bilateral knee pain. HISTORY OF PRESENT ILLNESS: This is a very pleasant 64-year-old female who returns to the Pain Clinic today for a refill of her opioid medications that she uses to help treat her ongoing low back pain and right knee pain. Today, she is reporting a pain score of 7/10, which has been elevated since she started back to work after the COVID virus. She states that she had to work 12 hours yesterday and was on her feet for a significant amount of time that did increase her pain. When she was at home during the pandemic, she was able to take less of her Suboxone on a daily basis; therefore, we have not seen her for a total of 3 months since she had decreased her opioid use. The patient's goal is to continue current therapies at home as a recumbent bike as well as walking up and down the steps to try and strengthen her legs and decrease in weight prior to her next total knee replacement in June of this year. She does report that medications, rest and ice, which she does use on her knee daily are beneficial in reducing her pain as well as her medications. She denies any problems with constipation or daytime sleepiness. ALLERGIES: No known drug allergies. CURRENT LIST OF MEDICATIONS: Meloxicam 15 mg daily, gabapentin 1200 mg at bedtime, Soma, tramadol 50 mg q.i.d., Suboxone 2/0.5 t.i.d., Norvasc, aspirin, Prilosec, and Zestril. PQRS: 1. She has a history of osteoarthritis in her back and bilateral knees with replacement of one knee. She denies any rheumatoid arthritis. 2. Height is 5 feet 2 inches, weight is 271, BMI is 49. 3. Vital signs 130/92, pulse is 84, respirations 18, oxygen sat is 99. 4. Pain score is 7/10. 5. Denies dizziness, does not need help walking or standing, has not fallen in the last 3 months. 6. She is not on any blood thinners, but does take medicine for hypertension. Her opioid therapy is greater than 6 weeks; therefore, an opioid signed contract is on the chart. Risk assessment tool is low. Functional assessment is 29/70. 7. Recreational drug use, she denies. She is not a smoker and does not drink [address] [address] PAIN MANAGEMENT CONSULTATION Name: WILLIAMLEXUS CAT Willis Room #: REG Nae Galo#: [id number] Admission: 02/05/20 Attend Phys: Medina Boyer Discharge: Date of : 59 Report #: [id number] alcohol. According to the prescription monitoring system, the patient is filling her medications in a timely fashion, though she has filled her tramadol and Suboxone greater than one month due to being at home for the COVID outbreak. PHYSICAL EXAMINATION: GENERAL: This is alert and orientated, morbidly obese class 3, 64-year-old female who is placing her current pain score today as 7/10. HEENT: Normocephalic, atraumatic. Extraocular eye muscles are intact. She is wearing a mask today. EXTREMITIES: No clubbing, no cyanosis. She has slight edema in her left knee. MUSCULOSKELETAL: Tenderness in her lumbosacral region of her back, pain in her bilateral knees, greater on the left than the right with slight edema on her left knee. She has a well-healed approximated scar on the left. Pain is increased with walking and stairs. She does have a slightly antalgic gait. ASSESSMENT: 1. Bilateral knee pain. 2. Bilateral knee osteoarthritis. 3. Severe morbid obesity. 4. Chronic low back pain. 5. Management of high risk medications under terms of written opioid agreement. We reviewed the fact that opiate medications are being used to provide analgesia adequate to support activities of daily living, not attempting to achieve a specific pain score on the 0-10 Visual Analog Scale. The current opiate medications are providing sufficient analgesia to allow the patient to participate in activities of daily living. The patient is not exhibiting any aberrant behavior suggestive of drug diversion. The patient is not having any adverse reactions to medications. The patient is not suffering from daytime somnolence or mental acuity changes. The patient is managing opiate-induced constipation with appropriate lxzs-amc-[id number] agents and dietary considerations. The patient was counseled on concern for caution with operating a motor vehicle while using opiate medications. PLAN: 1. We discussed treatment options with the patient today. The patient was able to decrease her meds during the COVID outbreak when she was not as active. I encouraged the patient to continue at lowest most effective dose trying to decrease slowly prior to her next surgery. The patient verbalizes understanding. We will continue on her current doses at this time and she will attempt to decrease over the next few months. Suboxone 2/0.5 mg t.i.d., #90, for today and 4 weeks supply and tramadol 50 mg #120 with one additional refill, these were phoned to the pharmacy. 2. The patient continues on her Soma, meloxicam and gabapentin. No need for [facility] [address] [place] [address] PAIN MANAGEMENT CONSULTATION Name: LEXUS THOMAS Room #: REG CLNae Galo#: [id number] Admission: 02/05/20 Attend Phys: Medina Boyer Discharge: Date of : 59 Report #: [id number] refills of those today. 3. We encouraged the patient to be as active as possible. Her goal is to lose 20-30 pounds prior to her next surgery. She is going to purchase a recumbent bike and do the exercises at home. She feels that that exercise does not increase her back pain and does not cause any additional knee pain. 4. The patient is seen in collaboration with Dr. Agustin Roth. The patient will return in 2 months for medication refills. <ELECTRONICALLY SIGNED> By: Medina Boyer 02/05/20 1420 [id number] [id number] Medina Boyer /nt
== END ==
LOC: PAIN 06:49
PROVIDERS: ATTEND Clinical Nurse Specialist Adult Health
DX: M17.0 Bilateral primary osteoarthritis of knee (principal); E66.01 Morbid (severe) obesity due to excess calories; Z79.899 Other long term (current) drug therapy; Z79.891 Long term (current) use of opiate analgesic

== ENCOUNTER → 2020-04-15 | Outpatient (CLI) | payer BC, OTHER ==
[~2020-04-15] VITALS: Ht 157.5 cm; Wt 115.2 kg
[~2020-04-15] MED LIST changes: +NEURONTIN600 MG PO
[2020-04-15 09:16] VITALS: BP 140/72
--- NOTE | 2020-04-15 09:34 | NUR ---
Pain Clinic Assessment: 1. History of Osteoarthritis: B/L KNEES BACK History of Rheumatoid Arthritis: Not Applicable 2. Height: 5 ft. 2 in. 157.5 cm. Weight: 254.0 lb. oz. 115.214 kg. Patient's BMI: 46.4 3. Vital Signs: BP: 140/72 Pulse: 79 Resp: 16 Temp: 02 Sat: 100 ECG Mon: 4. Pain Intensity: 4 5. Fall Risk: Dizziness: N Needs help standing or walking: N Fallen in the last 3 months: N Fall risk comments: 6. Patient on Blood Thinner: None 7. History of Hypertension: Y 8. Opioid Therapy greater than 6 weeks: Y Opiate Contract Signed: 03/12/16 9. Risk Assessment Tool Provided: LOW RISK 0/3 10. Functional Assessment Tool: 11. Recreational Drug Use: Never Drug Type: Tobacco Use: Never Smoker Tobacco Type: Amount or Packs/day: How Many Years: Alcohol Use: No Frequency: Quant:
--- NOTE | 2020-04-16 11:21 | HPC ---
[facility] [address] [address] PAIN MANAGEMENT CONSULTATION Name: LEXUS THOMAS Room #: REG LUANNE Josiah.#: [id number] Admission: 04/15/20 Attend Phys: Medina Boyer Discharge: Date of : 59 Report #: [id number] THIS REPORT FOR: cc: Jaziel Mosqueda MD, Steven J. MD Hocker,Medina LINDSEY ~ CC: Agustin Roth DO DATE OF SERVICE: 04/15/2020 CHIEF COMPLAINT: Low back pain, bilateral knee pain. HISTORY OF PRESENT ILLNESS: As you know, this is a very pleasant 64-year-old female who returns to the pain clinic today for refill of her medications that she uses to help treat her bilateral knee pain as well as some ongoing low back pain. She reports that her right knee has been problematic. She is going to have this replaced later in the year. She states her pain score is a 4/10 today. She feels that walking and standing for prolonged periods of time does exacerbate her pain. She states that last week, she worked several hours and was on feet, this caused an increase in her pain. She is on vacation this week and has been able to rest and her pain in lower at 4/10. She denies problems with constipation or daytime somnolence as a result of her medications. The patient has started phentermine since we saw her at her last visit. Since that time, she has lost 17 pounds. Her goal is to lose 50 more by the end of the year. We did discuss a too aggressive goal and not meeting our goals, but congratulated her on the weight loss that she has already obtained. Today, she is requesting refills of all of her medications. ALLERGIES: No known drug allergies. CURRENT LIST OF MEDICATIONS: Suboxone 2/0.5 t.i.d. p.r.n., Soma 350 1-2 tablets at bedtime, meloxicam 15 mg daily, gabapentin 1200 mg at bedtime, tramadol 50 mg p.r.n., amlodipine, aspirin, omeprazole, lisinopril, phentermine 30 mg. PQRS: 1. She has arthritic changes in her bilateral knees and back. Denies any rheumatoid arthritis. 2. Height is 5 feet 2 inches, weight is 254, BMI is 46. Vital signs 140/72, pulse is 79, respirations 16, oxygen sat is 100. 3. Pain score is 4/10. 4. Denies dizziness, does not need help walking or standing, has not fallen in the last 3 months. 5. The patient is not on any blood thinners, but does take medicine for hypertension. Her opioid therapy is greater than 6 weeks; therefore, an opioid signed contract is on the chart. Risk assessment is low. Functional assessment [address] [address] PAIN MANAGEMENT CONSULTATION Name: LEXUS THOMAS Room #: REG [facility] [id number] Admission: 04/15/20 Attend Phys: Medina Boyer Discharge: Date of : 59 Report #: [id number] is 29/70. 6. Recreational drug use, she denies. She is not a smoker and does not drink alcohol. According to the prescription monitoring system, the patient is filling appropriately, filling in a timely fashion. PHYSICAL EXAMINATION: GENERAL: This is a well-developed, well-nourished, well-hydrated, class 3, morbidly obese 64-year-old female who appears her stated age, rating her pain score at a 4/10 today. HEENT: Normocephalic, atraumatic. Pupils equal, round and reactive to light. She is wearing a mask. EXTREMITIES: No clubbing, no cyanosis, no edema. MUSCULOSKELETAL: There is palpatory tenderness over her right knee. Active and passive range of motion is met with increasing pain and crepitus. Pain is elicited from standing from a seated position. She does have tenderness in the lumbosacral region of her back as well. She walks with a slightly antalgic gait. ASSESSMENT: 1. Bilateral knee pain, right greater than left, currently bilateral knee osteoarthritis with replacement of her left total knee. 2. Severe morbid obesity, currently on phentermine. 3. Chronic low back pain. 4. Management of high risk medications under terms of written opioid agreement. We reviewed the fact that opiate medications are being used to provide analgesia adequate to support activities of daily living, not attempting to achieve a specific pain score on the 0-10 Visual Analog Scale. The current opiate medications are providing sufficient analgesia to allow the patient to participate in activities of daily living. The patient is not exhibiting any aberrant behavior suggestive of drug diversion. The patient is not having any adverse reactions to medications. The patient is not suffering from daytime somnolence or mental acuity changes. The patient is managing opiate-induced constipation with appropriate iwji-hvf-apbpwgu agents and dietary considerations. The patient was counseled on concern for caution with operating a motor vehicle while using opiate medications. A physical exam was performed and the patient's functional status was evaluated. All patients with back pain were advised against the bed rest greater than 4 days and were advised to return to normal activities. Pain score assessment was noted and the treatment plan was reviewed with the patient. All current medications, both prescribed and OTC were reviewed and reconciled on the electronic medical record. Tobacco screening was accomplished and smoking cessation was advised when indicated. BMI was noted and diet/exercise [facility] [address] [place] [address] PAIN MANAGEMENT CONSULTATION Name: LEXUS THOMAS Room #: REG LUANNE Josiah.#: [id number] Admission: 04/15/20 Attend Phys: Medina Boyer Discharge: Date of : 59 Report #: [id number] modification was recommended for all patients following outside normal parameters. I reviewed with the patient today their responsibilities to safeguard prescription medications, reviewed their responsibility to utilize medications only as prescribed by the physician. They are to seek and receive pain medications only from 1 physician group ( [facility]). They are to use 1 pharmacy and keep the clinic informed if they change pharmacies. Their responsibilities include making followup visits in a timely fashion and to avoid abrupt discontinuation of medication usage. Their responsibilities further include bringing their medications (bottles from the pharmacy with residual pills) to the visit for possible confirmation of pill counts and the patient understands it is their responsibility to submit to random drug screens to ensure both that the medications prescribed are present, and that no other controlled substances are present. All prescriptions provided today were generated electronically. PLAN: 1. We discussed treatment options with the patient today. We did discuss the patient's medications. She feels that they are beneficial in helping her be as active as she would like and help care for her grandchildren. We discussed again that after her second total knee replacement, which will be hopefully performed in June, our plan is to decrease her Suboxone and hopefully wean her off this medication. In the meantime, we have encouraged her to decrease her Soma 350 mg, she takes 2 every night. I have encouraged her to try to decrease this to one. Our goal is to not be relying on this muscle relaxant for her to sleep at night. The patient is agreeable. She will try to start decreasing the use of this medicine. 2. We will have Dr. Agustin Roth send her Suboxone 2/0.5 #90, for today and 4-week supply and tramadol 50 mg q.i.d., #120 with 1 refill. 3. I will refill her gabapentin 1200 mg, 600 mg tablets 2 at bedtime with 5 refills; meloxicam 15 mg tablets, #30 with 5 additional refills. 4. The patient will return in 2 months. Hopefully at that time, we will be able to decrease her Soma to one tablet at bedtime. 5. The patient is seen today in collaboration with Dr. Agustin Roth. <ELECTRONICALLY SIGNED> By: Medina Boyer 04/16/20 1121 [id number] [id number] Medina Boyer /jody
== END ==
LOC: PAIN 06:52
PROVIDERS: ATTEND Clinical Nurse Specialist Adult Health
DX: M54.5 Low back pain (principal); M25.561 Pain in right knee; M25.562 Pain in left knee; E66.9 Obesity, unspecified; G89.29 Other chronic pain; Z79.891 Long term (current) use of opiate analgesic

== ENCOUNTER → 2020-06-17 | Outpatient (CLI) | payer BC, OTHER ==
[~2020-06-17] VITALS: Ht 157.5 cm; Wt 110.2 kg
[2020-06-17 09:19] VITALS: BP 146/74
--- NOTE | 2020-06-17 09:23 | NUR ---
Pain Clinic Assessment: 1. History of Osteoarthritis: B/L KNEES BACK History of Rheumatoid Arthritis: Not Applicable 2. Height: 5 ft. 2 in. 157.5 cm. Weight: 243.0 lb. oz. 110.224 kg. Patient's BMI: 44.4 3. Vital Signs: BP: 146/74 Pulse: 85 Resp: 16 Temp: 02 Sat: 100 ECG Mon: 4. Pain Intensity: 4 5. Fall Risk: Dizziness: N Needs help standing or walking: N Fallen in the last 3 months: N Fall risk comments: 6. Patient on Blood Thinner: None 7. History of Hypertension: Y 8. Opioid Therapy greater than 6 weeks: Y Opiate Contract Signed: 03/12/16 9. Risk Assessment Tool Provided: LOW RISK 0 10. Functional Assessment Tool: 11. Recreational Drug Use: Never Drug Type: Tobacco Use: Never Smoker Tobacco Type: Amount or Packs/day: How Many Years: Alcohol Use: No Frequency: Quant:
--- NOTE | 2020-06-18 12:51 | HPC ---
[facility] [address] [address] PAIN MANAGEMENT CONSULTATION Name: LEXUS THOMAS Room #: REG SHANENae Galo#: [id number] Admission: 06/17/20 Attend Phys: Medina Boyer Discharge: Date of : 59 Report #: [id number] CC: Medina Chanel DATE OF SERVICE: 06/17/2020 CHIEF COMPLAINT: Chronic low back pain, bilateral knee pain. HISTORY OF PRESENT ILLNESS: This is a very pleasant 65-year-old female, who returns to the pain clinic today to discuss refills of her medication. Today, she is reporting a pain score of 4/10, most significantly in her lower back and her right knee. She does occasionally have left knee pain, but that is the knee that has been replaced and usually is not very problematic any longer. The patient reports a chronic tender feeling, worse with walking and prolonged standing. She feels that the medications and resting as well as occasional ice packs are beneficial. She denies problems with somnolence or constipation. Today, she is requesting refills, but is reporting that she has been decreasing her tramadol, taking 0-3 tablets a day and is wondering about decreasing that prescription. The patient continues to try to lose weight. Her current weight today is 243, down from 254, at her last visit 2 months ago. She continues on phentermine, trying to eat a healthy diet, eating more salads. Her highest weight this year was 271. She has not scheduled her knee replacement at this time. She is hopeful to get that scheduled at the beginning of the year after she has lost a little bit more weight per her report. ALLERGIES: No known drug allergies. CURRENT LIST OF MEDICATIONS: Gabapentin 600 mg 2 tablets at night, Suboxone 2/0.5 t.i.d., tramadol, Soma, meloxicam, phentermine, amlodipine, aspirin, Prilosec, and lisinopril. PQRS: 1. She has arthritic changes in her spine as well as her bilateral knees. Denies rheumatoid arthritis. 2. Height is 5 feet 2 inches, weight is 243, BMI is 44. Vital signs 146/74, pulse is 85, respirations 16, oxygen sat is 100, pain score is 4/10. Fall risk. Denies dizziness, does not need help walking or standing, has not fallen in the last 3 months. The patient is not on any blood thinners, but does take medicine for hypertension. 3. Opioid therapy is greater than 6 weeks; therefore, an opioid signed contract is on the chart. Risk assessment is low. Functional assessment is 29/70. 4. Recreational drug use, she denies. She is not a smoker and does not drink alcohol. According to the prescription monitoring system, she is filling her medicines appropriately in a timely fashion from Dr. Agustin Roth. We will collect a random drug screen on this patient today. PHYSICAL EXAMINATION: GENERAL: This is alert and orientated 65-year-old female, who appears her stated age, morbidly obese class 3, who is placing her pain score at 4/10 today. HEENT: Normocephalic, atraumatic. Extraocular eye muscles are intact. She is wearing a mask. MUSCULOSKELETAL: Tenderness in the lumbosacral region and pain in her right knee with slight edema in her lower extremities. She has an antalgic gait. She uses the armrest to raise from sitting to standing position. ASSESSMENT: 1. Bilateral knee pain. 2. Right knee osteoarthritis with left knee replacement. 3. Severe morbidly obesity. 4. Chronic low back pain. 5. Management of high risk medications under terms of written agreement. We reviewed the fact that opiate medications are being used to provide analgesia adequate to support activities of daily living, not attempting to achieve a specific pain score on the 0-10 Visual Analog Scale. The current opiate medications are providing sufficient analgesia to allow the patient to participate in activities of daily living. The patient is not exhibiting any aberrant behavior suggestive of drug diversion. The patient is not having any adverse reactions to medications. The patient is not suffering from daytime somnolence or mental acuity changes. The patient is managing opiate-induced constipation with appropriate vgxh-qow-vfnztut agents and dietary considerations. The patient was counseled on concern for caution with operating a motor vehicle while using opiate medications. A physical exam was performed and the patient's functional status was evaluated. All patients with back pain were advised against the bed rest greater than 4 days and were advised to return to normal activities. Pain score assessment was noted and the treatment plan was reviewed with the patient. All current medications, both prescribed and OTC were reviewed and reconciled on the electronic medical record. Tobacco screening was accomplished and smoking cessation was advised when indicated. BMI was noted and diet/exercise modification was recommended for all patients following outside normal parameters. I reviewed with the patient today their responsibilities to safeguard prescription medications, reviewed their responsibility to utilize medications only as prescribed by the physician. They are to seek and receive pain medications only from 1 physician group ( [facility]). They are to use 1 pharmacy and keep the clinic informed if they change pharmacies. Their responsibilities include making followup visits in a timely fashion and to avoid abrupt discontinuation of medication usage. Their responsibilities further include bringing their medications (bottles from the pharmacy with residual pills) to the visit for possible confirmation of pill counts and the patient understands it is their responsibility to submit to random drug screens to ensure both that the medications prescribed are present, and that no other controlled substances are present. All prescriptions provided today were generated electronically. PLAN: 1. We discussed treatment options with the patient today. She continues taking her Suboxone three times a day, but has been able to decrease her tramadol. Today, she would like to decrease the amount of medications she receives in each prescription of that and try to continue to decrease that further. So today, we will have Dr. Agutsin Roth write her Suboxone 2/0.5 #90, for today and 4-week supply and tramadol 50 mg, #90 pills a decrease from 120 for one additional refill. 2. I encouraged the patient to try to continue decreasing her Soma. We discussed that this is a muscle relaxer that can be very addictive muscle relaxant and encouraged her to decrease to 1 tablet at bedtime with a goal of slowly weaning off this medication. I encouraged her to try melatonin in place of her Soma. The patient verbalizes understanding. 3. We did discuss hopefully scheduling her knee replacement for her right knee at the beginning of the new year. She has a new grandbaby at home, so she is trying to put off the surgery slightly longer and continue to lose weight. She has dipped down 11 pounds since we last saw her at her last visit 2 months ago. 4. The patient is seen in collaboration with Dr. Agustin Roth. The patient will return in 2 months. At that time, we will revisit her Soma prescription and tramadol prescription as well. <ELECTRONICALLY SIGNED> By: Medina Boyer 06/18/20 1251 1044 1241 Medina Boyer /nt
== END ==
LOC: PAIN 06:50
PROVIDERS: ATTEND Clinical Nurse Specialist Adult Health
DX: M17.11 Unilateral primary osteoarthritis, right knee (principal); G89.29 Other chronic pain; M25.562 Pain in left knee; E66.01 Morbid (severe) obesity due to excess calories; F11.20 Opioid dependence, uncomplicated; Z88.8 Allergy status to other drugs, medicaments and biological substances; Z79.899 Other long term (current) drug therapy

== ENCOUNTER → 2020-08-19 | Outpatient (CLI) | payer BC, OTHER ==
[~2020-08-19] VITALS: Ht 157.5 cm; Wt 107.9 kg
[2020-08-19 09:11] VITALS: BP 145/63
--- NOTE | 2020-08-19 09:21 | NUR ---
Pain Clinic Assessment: 1. History of Osteoarthritis: B/L KNEES BACK History of Rheumatoid Arthritis: Not Applicable 2. Height: 5 ft. 2 in. 157.5 cm. Weight: 237.8 lb. oz. 107.866 kg. Patient's BMI: 43.5 3. Vital Signs: BP: 145/63 Pulse: 78 Resp: 16 Temp: 02 Sat: 100 ECG Mon: 4. Pain Intensity: 3 5. Fall Risk: Dizziness: N Needs help standing or walking: N Fallen in the last 3 months: N Fall risk comments: 6. Patient on Blood Thinner: None 7. History of Hypertension: Y 8. Opioid Therapy greater than 6 weeks: Y Opiate Contract Signed: 03/12/16 9. Risk Assessment Tool Provided: LOW RISK 0 10. Functional Assessment Tool: 11. Recreational Drug Use: Never Drug Type: Tobacco Use: Never Smoker Tobacco Type: Amount or Packs/day: How Many Years: Alcohol Use: No Frequency: Quant:
--- NOTE | 2020-08-19 14:36 | HPC ---
[facility] [place] [address] PAIN MANAGEMENT CONSULTATION Name: LEXUS THOMAS Room #: REG LUANNE Isamar.#: [id number] Admission: 08/19/20 Attend Phys: Medina Boyer Discharge: Date of : 59 Report #: [id number] THIS REPORT FOR: cc: Jaziel Mosqueda MD, Steven J. MD Hocker,Medina Hayden DATE OF SERVICE: 08/19/2020 CHIEF COMPLAINT: Chronic low back pain, bilateral knee pain. HISTORY OF PRESENT ILLNESS: This is a 65-year-old female who returns to the pain clinic today for refill of her opioid medications that she uses to help treat her ongoing low back pain and bilateral knee pain. The patient is reporting a pain score of 3/10. Today feels like her pain is worse from her waist down per her report. It is a chronic tenderness with aching sensation and occasional shooting that is worse with ambulation and going upstairs she believes. She believes the colder weather does increase her pain as well. She continues to try and take less Suboxone than prescribed, but is finding in the last few weeks has been significantly busy at work, she is requiring 3 tablets a day. The patient continues to lose weight since our last visit, she has lost 7 pounds. She takes phentermine on a daily basis and does watch her diet. Overall, she is down 30 pounds since the highest weight that we have on record this past year. ALLERGIES: No known drug allergies. CURRENT LIST OF MEDICATIONS: Tramadol 50 mg b.i.d., Suboxone 2/0.5, gabapentin, Soma, meloxicam, phentermine, amlodipine, aspirin, omeprazole, and lisinopril. PQRS: 1. She has bilateral osteoarthritis in her bilateral knees and back. Denies rheumatoid arthritis. 2. Height is 5 feet 2 inches, weight is 237, BMI is 43. 3. Vital signs 145/63, pulse is 88, respirations 16, oxygen sat is 100. 4. Pain score is 3/10. 5. Denies dizziness, does not need help walking or standing, has not fallen in the last 3 months. 6. The patient is not on any blood thinners, but does take medicine for hypertension. Opioid therapy is greater than 6 weeks; therefore, an opioid signed contract on the chart. Risk assessment is low. Functional assessment is 29/70. 7. Recreational drug use, she denies. She is not a smoker and does not drink alcohol. [address] [address] PAIN MANAGEMENT CONSULTATION Name: LEXUS THOMAS Room #: REG [facility] Iraj#: [id number] Admission: 08/19/20 Attend Phys: Medina Boyer Discharge: Date of : 59 Report #: [id number] According to the prescription monitoring system, she is filling appropriately. There is a random drug screen on the chart that was appropriate for her medications as well. PHYSICAL EXAMINATION: GENERAL: This is alert and orientated, morbidly obese 65-year-old female who appears her stated age, placing her current pain score at 3/10. HEENT: Normocephalic, atraumatic. Extraocular eye muscles are intact. She is a good historian. She is wearing a mask. Her speech is fluent. MUSCULOSKELETAL: Slight edema in her left knee with no clubbing or cyanosis present. There is tenderness in the lumbosacral region of her back as well as tenderness in her bilateral knees, greater on the left than the right. She has well-healed scars on her left knee. Her walk is antalgic. Pain is increased with ambulation, uses armrest to raise from a seated to standing position. Her lower extremity strength is symmetrical at 5/5. ASSESSMENT: 1. Bilateral knee pain. 2. Bilateral knee osteoarthritis. 3. Severe morbid obesity, continuing phentermine therapy. 4. Chronic low back pain. 5. Management of high risk medications under terms of written opioid agreement. We reviewed the fact that opiate medications are being used to provide analgesia adequate to support activities of daily living, not attempting to achieve a specific pain score on the 0-10 Visual Analog Scale. The current opiate medications are providing sufficient analgesia to allow the patient to participate in activities of daily living. The patient is not exhibiting any aberrant behavior suggestive of drug diversion. The patient is not having any adverse reactions to medications. The patient is not suffering from daytime somnolence or mental acuity changes. The patient is managing opiate-induced constipation with appropriate [id number] agents and dietary considerations. The patient was counseled on concern for caution with operating a motor vehicle while using opiate medications. A physical exam was performed and the patient's functional status was evaluated. All patients with back pain were advised against the bed rest greater than 4 days and were advised to return to normal activities. Pain score assessment was noted and the treatment plan was reviewed with the patient. All current medications, both prescribed and OTC were reviewed and reconciled on the electronic medical record. Tobacco screening was accomplished and smoking cessation was advised when indicated. BMI was noted and diet/exercise modification was recommended for all patients following outside normal parameters. [address] [address] PAIN MANAGEMENT CONSULTATION Name: LEXUS THOMAS Room #: REG LUANNE Galo#: [id number] Admission: 08/19/20 Attend Phys: Medina Boyer Discharge: Date of : 59 Report #: [id number] I reviewed with the patient today their responsibilities to safeguard prescription medications, reviewed their responsibility to utilize medications only as prescribed by the physician. They are to seek and receive pain medications only from 1 physician group ( [facility]). They are to use 1 pharmacy and keep the clinic informed if they change pharmacies. Their responsibilities include making followup visits in a timely fashion and to avoid abrupt discontinuation of medication usage. Their responsibilities further include bringing their medications (bottles from the pharmacy with residual pills) to the visit for possible confirmation of pill counts and the patient understands it is their responsibility to submit to random drug screens to ensure both that the medications prescribed are present, and that no other controlled substances are present. All prescriptions provided today were generated electronically. PLAN: 1. We discussed treatment options with the patient today. The patient continues to do well on Suboxone 2/0.5 mg 2-3 tablets a day, most recently taking 3 tablets on a daily basis. We will continue this medication for today and 4-week supply. The patient takes tramadol 50 mg, #90, with one additional refill will be sent electronically by Dr. Roth, this is a decrease the last few months and has been continued to do well on this lower dose. 2. We did discuss decreasing her Soma. She does have another refill. At the next fill, we will decrease that to 45 pills. Encouraged the patient to take one only at night allowing her 15 extra for the month, we will continue that amount for several months and then decrease her to 1 tablet a month. We have discussed this numerous times in the past several months trying to wean her slowly off this medicine. 3. The patient will return in 2 months. At that time, we will refill all of her medications. <ELECTRONICALLY SIGNED> By: Medina Boyer 08/19/20 [id number] Medina Boyer /nt
== END ==
LOC: PAIN 06:53
PROVIDERS: ATTEND Clinical Nurse Specialist Adult Health
DX: M17.0 Bilateral primary osteoarthritis of knee (principal); E66.01 Morbid (severe) obesity due to excess calories; G89.29 Other chronic pain; Z79.891 Long term (current) use of opiate analgesic

== ENCOUNTER → 2020-10-15 | Outpatient (CLI) | payer BC, OTHER ==
[~2020-10-15] VITALS: Ht 157.5 cm; Wt 108.0 kg
[2020-10-15 14:16] VITALS: BP 163/72
--- NOTE | 2020-10-15 14:25 | NUR ---
Pain Clinic Assessment: 1. History of Osteoarthritis: B/L KNEES BACK History of Rheumatoid Arthritis: Not Applicable 2. Height: 5 ft. 2 in. 157.5 cm. Weight: 238.0 lb. oz. 107.956 kg. Patient's BMI: 43.5 3. Vital Signs: BP: 163/72 Pulse: 89 Resp: 16 Temp: 02 Sat: 99 ECG Mon: 4. Pain Intensity: 5 5. Fall Risk: Dizziness: N Needs help standing or walking: N Fallen in the last 3 months: N Fall risk comments: 6. Patient on Blood Thinner: None 7. History of Hypertension: Y 8. Opioid Therapy greater than 6 weeks: Y Opiate Contract Signed: 03/12/16 9. Risk Assessment Tool Provided: LOW RISK 3 10. Functional Assessment Tool: 11. Recreational Drug Use: Never Drug Type: Tobacco Use: Never Smoker Tobacco Type: Amount or Packs/day: How Many Years: Alcohol Use: No Frequency: Quant:
--- NOTE | 2020-10-16 10:17 | HPC ---
[facility] [address] [place] [address] PAIN MANAGEMENT CONSULTATION Name: LEXUS THOMAS [id number] Admission: 10/15/20 Attend Phys: Medina Boyer Discharge: Date of : 59 Report #: [id number] THIS REPORT FOR: cc: Jaziel Mosqueda MD, Steven J. MD Hocker,Medina Hayden DATE OF SERVICE: 10/15/2020 CHIEF COMPLAINT: Chronic low back pain, bilateral knee pain. HISTORY OF PRESENT ILLNESS: As you know, this is a very pleasant 65-year-old female who returns to the pain clinic today for refill of her Suboxone that she uses to help treat her ongoing low back pain and bilateral knee pain. She does report her pain score a 5/10 today. The weather has made her pain worse in the last few days. Typically, she states that she was doing quite better on her current regimen and is hopeful that it will return back to a lower number after the weather has subsided. She reports walking, using stairs and standing for a prolonged period of time does aggravate her as well. The use of the medication as well as rest helps alleviate her pain that she describes as an aching, sharp pain. The patient reports she is stabilized on her weight currently. She has been trying to lose weight in order to have her second knee replaced and is on phentermine. She has not gained weight and her weight has remained stable this past 2 months. ALLERGIES: No known drug allergies. CURRENT LIST OF MEDICATIONS: Tramadol, Suboxone, gabapentin, Soma, meloxicam, phentermine, amlodipine, aspirin, omeprazole, and lisinopril. PQRS: 1. She has osteoarthritic changes in her spine and knees. Denies any rheumatoid arthritis. 2. Height is 5 feet 2 inches, weight is 238, BMI is 43. 3. Vital signs: 163/72, pulse is 89, respirations 16, oxygen sat is 99%. 4. Pain score is 5/10. 5. Denies dizziness, does not need help walking or standing, has not fallen in the last 3 months. 6. The patient is not on any blood thinners, but does have history of hypertension. 7. Opioid therapy is greater than 6 weeks; therefore, an opioid signed contract is on the chart. Risk assessment is low. Functional assessment is . 8. Recreational drug use, she denies. She is not a smoker and does not drink alcohol. According to the prescription monitoring system, the patient is filling appropriately for her medications in a timely fashion. There is a drug screen [address] [address] PAIN MANAGEMENT CONSULTATION Name: LEXUS THOMAS Room #: REG CLNae Galo#: [id number] Admission: 10/15/20 Attend Phys: Medina Boyer Discharge: Date of : 59 Report #: [id number] on the chart that is appropriate as well. PHYSICAL EXAMINATION: GENERAL: This is alert and orientated, morbidly obese 65-year-old who appears her stated age, placing her current pain score at 5/10 today. HEENT: Normocephalic, atraumatic. Extraocular eye muscles are intact. She is a good historian and she is wearing a mask. MUSCULOSKELETAL: She has no clubbing, no cyanosis, but has slight edema in her left knee as well as tenderness in her knees bilaterally, greater on the left than the right. She has an antalgic gait. Pain in the lumbosacral region that radiates into her buttocks. Her lower extremity strength is symmetrical at 5/5. ASSESSMENT: 1. Bilateral knee pain. 2. Bilateral knee osteoarthritis. 3. Severe morbid obesity, continuing phentermine therapy. 4. Chronic low back pain. 5. Management of high risk medications under terms of written opioid agreement. PLAN: 1. We discussed treatment options with the patient today. We have been trying to decrease her Soma and explained to her at several visits that today we would decrease her Soma from 60 tablets per month to 45. The patient verbalizes understanding. I encouraged her to use 1 tablet every night with occasionally using 2 for this medicine for her muscle spasms and sleep that she has been very dependent on. Scripts sent electronically for this medication. 2. We will continue her on her Suboxone 2/0.5 mg tablets, #90, as well as her tramadol 50 mg tablets, #90. These will be sent for [address] Agustin Roth. 3. I will continue her on her meloxicam 15 mg daily, #30, with 5 additional refills and gabapentin 600 mg 2 tablets at bedtime, #60, with 5 additional refills. 4. We did discuss the COVID vaccine. The patient has been tested for COVID and was negative for the test as well as antibodies. Her son-in-law was recently diagnosed. The patient is hopeful to have the vaccine when she is able to in phase 3. 5. The patient will return in 2 months. The patient is seen today in collaboration with Dr. Agustin Roth. <ELECTRONICALLY SIGNED> By: Medina Boyer 10/16/20 1017 [id number] 1727 Medina Boyer /jody
== END ==
LOC: PAIN 07:15
PROVIDERS: ATTEND Clinical Nurse Specialist Adult Health
DX: M17.0 Bilateral primary osteoarthritis of knee (principal); E66.01 Morbid (severe) obesity due to excess calories; M54.5 Low back pain; G89.29 Other chronic pain; F11.20 Opioid dependence, uncomplicated; Z88.8 Allergy status to other drugs, medicaments and biological substances; Z79.899 Other long term (current) drug therapy

== ENCOUNTER → 2020-12-25 | Outpatient (CLI) | payer BC, OTHER ==
[~2020-12-25] VITALS: Ht 157.5 cm; Wt 106.4 kg
[2020-12-25 13:15] VITALS: BP 113/63
--- NOTE | 2020-12-25 13:27 | NUR ---
Pain Clinic Assessment: 1. History of Osteoarthritis: B/L KNEES BACK History of Rheumatoid Arthritis: Not Applicable 2. Height: 5 ft. 2 in. 157.5 cm. Weight: 234.6 lb. oz. 106.414 kg. Patient's BMI: 42.9 3. Vital Signs: BP: 113/63 Pulse: 91 Resp: 16 Temp: 02 Sat: 100 ECG Mon: 4. Pain Intensity: 5 5. Fall Risk: Dizziness: N Needs help standing or walking: N Fallen in the last 3 months: N Fall risk comments: 6. Patient on Blood Thinner: None 7. History of Hypertension: Y 8. Opioid Therapy greater than 6 weeks: Y Opiate Contract Signed: 03/12/16 9. Risk Assessment Tool Provided: LOW RISK 3 10. Functional Assessment Tool: 11. Recreational Drug Use: Never Drug Type: Tobacco Use: Never Smoker Tobacco Type: Amount or Packs/day: How Many Years: Alcohol Use: No Frequency: Quant:
--- NOTE | 2020-12-30 11:28 | HPC ---
[facility] [place] [address] PAIN MANAGEMENT CONSULTATION Name: LEXUS THOMAS Room #: REG LUANNE Darian.#: [id number] Admission: 12/25/20 Attend Phys: Medina Boyer Discharge: Date of : 59 Report #: [id number] THIS REPORT FOR: cc: Jaziel Mosqueda MD, Steven J. MD Hocker, Amanda CNS ~ DOC #: [id number] cc: DO Medina Pastrana, MEHDI DATE OF SERVICE: 12/25/2020 CHIEF COMPLAINT: Chronic low back pain, bilateral knee pain. HISTORY OF PRESENT ILLNESS: This is a very pleasant 65-year-old female who is morbidly obese. Today, she returns for renewal of her medications. She is seen on a Dr. Jean Paul Escobar day due to the fact that she thought she was out of her medications and did not make a timely appointment. Today, she is reporting a pain score of 5/10, mostly located in her low back, though it does affect her knees significantly and at times her hands are hurting. 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 She describes her pain as an aching, shooting, a sharp discomfort that is worse with walking or standing for prolonged period of times. She believes cold weather does increase her pain as well. Overall, she believes her medications are beneficial as well as cold and resting. The patient denies any opioid-induced constipation or daytime somnolence as a result of her medications. She reports being extremely tired today, but she has been very busy at work, working very long hours the past few weeks. The patient explains that she is very sorry for not making a timely appointment. She thought she had another prescription at the pharmacy to fill. She has been having a problem getting her Suboxone from her pharmacy recently and is considering changing to a different location. She called them, and they told her no more refills, though she feels like she is only taking an average of 2 tablets a day for the past few weeks. ALLERGIES: No known drug allergies. CURRENT LIST OF MEDICATIONS: Tramadol 50 mg t.i.d. p.r.n., Meloxicam, gabapentin, Soma, Suboxone 2/0.5, phentermine, amlodipine, aspirin, lisinopril. PQRS: 1. She has osteoarthritis in her knees and back. Denies any rheumatoid arthritis. 2. Height is 5 feet 2 inches. Weight is 234, which is down 4 pounds since her last visit. Her BMI is 42.9. 3. Vital Signs: 113/63, pulse is 91, respirations 16, oxygen sat is 100. [address] [address] PAIN MANAGEMENT CONSULTATION Name: LEXUS THOMAS Willis Room #: REG [facility] Iraj#: [id number] Admission: 12/25/20 Attend Phys: Medina Boyer Discharge: Date of : 59 Report #: [id number] 4. Pain score is 5/10. 5. Denies dizziness. Does not need help with walking or standing. Has not fallen in the last 3 months. 6. The patient is not on any blood thinners, but does take medicine for hypertension. Opiate therapy is greater than 6 weeks; therefore, an opioid signed contract is on the chart. 7. Risk assessment is low. Functional assessment is . 8. Recreational drug use, she denies. She does not smoke and does not drink alcohol. According to the prescription monitoring system, the patient has only filled one buprenorphine from her last visit, it was filled on 11/03/2020 according to the prescription monitoring system and has only filled tramadol on the same date. I did take the liberty of calling her pharmacy and there indeed was her refills for this medication and encouraged them to fill this today for her. According to our records now, the patient will have from this date 3 months of medications. Her morphine milliequivalent is below the CDC guidelines, and there is a urine drug screen on the chart that is appropriate as well. PHYSICAL EXAMINATION: GENERAL: This is alert and orientated, slightly stressed, morbidly obese 65-year-old female who appears her stated age, rating her pain score today at 5/10. HEENT: Normocephalic, atraumatic. Extraocular eye muscles are intact. Mucous membranes are moist. She is a good historian. NEUROLOGIC: Her speech is fluent. She is wearing a mask. MUSCULOSKELETAL: She is without significant kyphosis, scoliosis, or lordosis. No clubbing. No cyanosis or edema located in her left knee. Though she does have tenderness that is greater on the left than the right. She has an antalgic gait. Pain is also in her lumbosacral region that radiates into her buttocks but not into her legs. ASSESSMENT: 1. Bilateral knee pain. 2. Bilateral knee osteoarthritis. 3. Chronic low back pain. 4. Severe morbid obesity. Continue on phentermine therapy and continue weight loss. 5. Management of high risk medications and returns written opioid agreement. PLAN: 1. We discussed treatment options with the patient today. The patient felt that she was out of her medication when in fact she has actually gone longer in between fills and has taken less medication than prescribed. The pharmacy will fill her 4-week prescription today; therefore, the patient will have 3 months of medication with the medicines filled by Dr. Escobar today. [facility] [address] [place] [address] PAIN MANAGEMENT CONSULTATION Name: LEXUS THOMAS Room #: REG [facility].#: [id number] Admission: 12/25/20 Attend Phys: Medina Boyer Discharge: Date of : 59 Report #: [id number] 2. Suboxone 2/0.5 mg tablets, #90, for 2 months as well as tramadol 50 mg, #90 ,were given to the patient. Dr. Jean Paul Escobar is covering for Dr. Agustin Roth today. 3. The patient has had her first in a COVID series, which the patient is very thankful for. No further prescriptions are needed to be sent today. The patient has plenty of refills. Time spent with the patient in consultation, reviewing recent studies, clinical notes and physician reports, physical examination and correlation of findings and medical documentation to determine possible treatments as well as calling the pharmacy to verify prescriptions 17 minutes. Time spent in preparation for appointment preparing for prescription monitoring system report, reviewing previous records and proposed treatment options, reviewing current medications 5 minutes. Time spent preparing and sending electronic prescriptions with collaborating physician and documentation of visit and plan of treatment 5 minutes. Total time spent 27 minutes. MEHDI Brown/WILLIAM/BRIDGET <ELECTRONICALLY SIGNED> By: Medina Boyer 12/30/20 1128 [id number] 1223 Medina Boyer /nt
== END ==
LOC: PAIN 07:00
PROVIDERS: ATTEND Clinical Nurse Specialist Adult Health
DX: G89.29 Other chronic pain (principal); M54.5 Low back pain; M17.0 Bilateral primary osteoarthritis of knee; E66.01 Morbid (severe) obesity due to excess calories; F11.20 Opioid dependence, uncomplicated

== ENCOUNTER → 2021-03-03 | Outpatient (CLI) | payer BC, OTHER ==
[~2021-03-03] VITALS: Ht 157.5 cm; Wt 106.7 kg
[2021-03-03 11:27] VITALS: BP 126/65
--- NOTE | 2021-03-03 11:34 | NUR ---
Pain Clinic Assessment: 1. History of Osteoarthritis: B/L KNEES BACK History of Rheumatoid Arthritis: Not Applicable 2. Height: 5 ft. 2 in. 157.5 cm. Weight: 235.2 lb. oz. 106.686 kg. Patient's BMI: 43.0 3. Vital Signs: BP: 126/65 Pulse: 86 Resp: 16 Temp: 02 Sat: 100 ECG Mon: 4. Pain Intensity: 5 5. Fall Risk: Dizziness: N Needs help standing or walking: N Fallen in the last 3 months: N Fall risk comments: 6. Patient on Blood Thinner: None 7. History of Hypertension: Y 8. Opioid Therapy greater than 6 weeks: Y Opiate Contract Signed: 03/12/16 9. Risk Assessment Tool Provided: LOW RISK 3 10. Functional Assessment Tool: 11. Recreational Drug Use: Never Drug Type: Tobacco Use: Never Smoker Tobacco Type: Amount or Packs/day: How Many Years: Alcohol Use: No Frequency: Quant:
--- NOTE | 2021-03-04 08:00 | HPC ---
[facility] [place] [address] PAIN MANAGEMENT CONSULTATION Name: LEXUS THOMAS [facility]: [facility] [id number] Admission: 03/03/21 Attend Phys: Agustin Roth DO Discharge: Date of : 59 Report #: [id number] THIS REPORT FOR: cc: Jaziel Mosqueda MD, Steven J. MD Johnson, James E. DO ~ DOC #: [id number] cc: Jaziel Roth DO DATE OF SERVICE: 03/03/2021 REFERRING PHYSICIAN: Jaziel Mosqueda MD CHIEF COMPLAINT: Chronic low back pain, bilateral knee pain. HISTORY OF PRESENT ILLNESS: As you know, the patient is a very pleasant 65-year-old female who has returned today in followup visit requesting refill on medications to address bilateral knee pain and chronic low back pain. She reports no side effects of medication including sleepiness, disorientation, confusion, mental slowing. She feels the medications are working beneficially for pain control. She indicates that without the medication, she would not be able to continue to work and participate in daily activities. She states with the medication, she is able to function well and be able to go about all activities of daily living. She states that she continues to notice low back symptoms and bilateral knee pain on a daily basis. She has been evaluated from a surgical standpoint to undergo total knee arthroplasties. She has addressed one knee planning to have the other replaced after she loses some more weight. She returns today in followup visit requesting refill on medications at current dosing. ALLERGIES: No known drug allergies. CURRENT MEDICATIONS: Suboxone 2/0.5 mg t.i.d. p.r.n., tramadol 50 mg 1 tab p.o. t.i.d. p.r.n., meloxicam 15 mg once a day, gabapentin 1200 mg p.o. at bedtime, Soma 350 mg 1 to 2 tabs p.o. at bedtime p.r.n., phentermine 30 mg once a day, amlodipine 5 mg per day, aspirin 81 mg per day, omeprazole 20 mg per day, lisinopril 20 mg per day. SOCIAL HISTORY: The patient reports herself a nonsmoker. Denies IV or illicit drug use. Denies any chronic alcohol use. She is unaccompanied at today's visit. IMAGING: No new imaging is available. PHYSICAL EXAMINATION: VITAL SIGNS: Blood pressure 126/65, pulse 86, respiratory rate 16 [place] [address] PAIN MANAGEMENT CONSULTATION Name: LEXUS THOMAS Room #: REG [facility].#: [id number] Admission: 03/03/21 Attend Phys: Agustin Roth DO Discharge: Date of : 59 Report #: [id number] unlabored. The patient 100% on room air. Height 5 feet 2 inches tall, weight 235.2 pounds, BMI calculated 43.0. GENERAL: Well-developed, well-nourished, well-hydrated, class III morbidly obese 65-year-old female appearing stated age, pain is rated around 5/10. HEENT: Normocephalic, atraumatic. Pupils equal, round and responsive. Speech fluent. She is wearing a mask in compliance with COVID-19 regulations. EXTREMITIES: Show no clubbing, no cyanosis. There is 1+ nonpitting lower extremity edema bilaterally. MUSCULOSKELETAL: Seated straight leg raising negative. Supine straight leg raising negative. Epifanio's test is negative. Modified Gaenslen's positive for axial low back pain. Ankle clonus negative. Pain is elicited with standing from a seated position involving the knees bilaterally as well as low back. ASSESSMENT: 1. Bilateral knee pain due to severe osteoarthritis. 2. Chronic low back pain. 3. Severe morbid obesity. 4. Complicated medication management utilizing scheduled medications. 5. Chronic intractable pain. PLAN: 1. The patient returns today in followup visit requesting refill on medications. She feels the combination of medications are working beneficially for pain control. The patient has been on these medications since 2013. She has been stable on a dose for an extended period of time. She is requiring no changes in medication management this visit. She returns today requesting refill of each of her medications for pain control. We reviewed the fact that opiate medications are being used to provide analgesia adequate to support activities of daily living, not attempting to achieve a specific pain score on the 0-10 Visual Analog Scale. The current opiate medications are providing sufficient analgesia to allow the patient to participate in activities of daily living. The patient is not exhibiting any aberrant behavior suggestive of drug diversion. The patient is not having any adverse reactions to medications. The patient is not suffering from daytime somnolence or mental acuity changes. The patient is managing opiate-induced constipation with appropriate mbmu-tqp-duhigui agents and dietary considerations. The patient was counseled on concern for caution with operating a motor vehicle while using opiate medications. A physical exam was performed and the patient's functional status was evaluated. All patients with back pain were advised against the bed rest greater than 4 days and were advised to return to normal activities. Pain score assessment was noted and the treatment plan was reviewed with the patient. All current medications, both prescribed and OTC were reviewed and reconciled on the electronic medical record. Tobacco screening was accomplished and smoking [facility] [address] [place] [address] PAIN MANAGEMENT CONSULTATION Name: WILLIAM,LEXUS R Room #: REG LUANNE Iraj#: [id number] Admission: 03/03/21 Attend Phys: Agustin Roth DO Discharge: Date of : 59 Report #: [id number] cessation was advised when indicated. BMI was noted and diet/exercise modification was recommended for all patients following outside normal parameters. I reviewed with the patient today their responsibilities to safeguard prescription medications, reviewed their responsibility to utilize medications only as prescribed by the physician. They are to seek and receive pain medications only from 1 physician group ( [facility]). They are to use 1 pharmacy and keep the clinic informed if they change pharmacies. Their responsibilities include making followup visits in a timely fashion and to avoid abrupt discontinuation of medication usage. Their responsibilities further include bringing their medications (bottles from the pharmacy with residual pills) to the visit for possible confirmation of pill counts and the patient understands it is their responsibility to submit to random drug screens to ensure both that the medications prescribed are present, and that no other controlled substances are present. All prescriptions provided today were generated electronically. 2. The patient was provided a prescription of Suboxone 2 mg/0.5 one tab 3 times a day p.r.n. pain. I have given patient #90 to release today and 4 weeks from today, 2 months' worth of medication. 3. The patient was provided prescription of tramadol 50 mg dose 1 tab p.o. t.i.d. p.r.n. pain, #90 with one refill, 2 months' worth of medication. 4. The patient was provided prescription of meloxicam 15 mg dose 1 tab p.o. every day #30 with multiple refills. These prescriptions sent via e-scribe to local pharmacy. 5. The patient was provided prescription of gabapentin 600 mg dose 2 tabs p.o. at bedtime, #60 with 5 refills, 6 months' worth of medication. Prescriptions sent via e-scribe to local pharmacy. 6. The patient was provided prescription of Soma 350 mg dose, one to two tabs p.o. at bedtime p.r.n., given the patient #45 tablets and refills. Prescriptions sent via e-scribe to local pharmacy. 7. We will see the patient back in followup visit in 2 months for opioid medication management. We are hopeful the patient will continue to see good efficacy with treatment. Agustin Roth DO JEJ/KDA <ELECTRONICALLY SIGNED> By: Agustin Roth DO 03/04/21 0800 1211 1935 Agustin Roth DO /nt
== END ==
LOC: PAIN 10:01
PROVIDERS: ATTEND Anesthesiology Pain Medicine
DX: G89.29 Other chronic pain (principal); M17.0 Bilateral primary osteoarthritis of knee; M54.5 Low back pain; E66.01 Morbid (severe) obesity due to excess calories; Z68.41 Body mass index [BMI] 40.0-44.9, adult; Z79.891 Long term (current) use of opiate analgesic; Z79.899 Other long term (current) drug therapy

== ENCOUNTER → 2021-04-21 | Outpatient (CLI) | payer BC, OTHER ==
[~2021-04-21] VITALS: Ht 157.5 cm; Wt 103.4 kg
[2021-04-21 10:28] VITALS: BP 119/83
--- NOTE | 2021-04-21 10:40 | NUR ---
Pain Clinic Assessment: 1. History of Osteoarthritis: B/L KNEES BACK History of Rheumatoid Arthritis: Not Applicable 2. Height: 5 ft. 2 in. 157.5 cm. Weight: 228.0 lb. oz. 103.420 kg. Patient's BMI: 41.7 3. Vital Signs: BP: 119/83 Pulse: 88 Resp: 20 Temp: 02 Sat: 100 ECG Mon: 4. Pain Intensity: 3 5. Fall Risk: Dizziness: N Needs help standing or walking: N Fallen in the last 3 months: N Fall risk comments: 6. Patient on Blood Thinner: None 7. History of Hypertension: Y 8. Opioid Therapy greater than 6 weeks: Y Opiate Contract Signed: 03/12/16 9. Risk Assessment Tool Provided: LOW RISK 3 10. Functional Assessment Tool: 11. Recreational Drug Use: Never Drug Type: Tobacco Use: Never Smoker Tobacco Type: Amount or Packs/day: How Many Years: Alcohol Use: No Frequency: Quant:
--- NOTE | 2021-04-22 13:51 | HPC ---
[facility] [place] [address] PAIN MANAGEMENT CONSULTATION Name: LEXUS THOMAS Room #: REG [facility] [id number] Admission: 04/21/21 Attend Phys: Medina Boyer Discharge: Date of : 59 Report #: [id number] THIS REPORT FOR: cc: Jaziel Mosqueda MD,Jaziel Boyer,Medina LINDSEY ~ cc: Agustin Roth DO, Steven Broxterman DATE OF SERVICE: 04/21/2021 CHIEF COMPLAINT: Chronic low back pain, bilateral knee pain. HISTORY OF PRESENT ILLNESS: This is a pleasant 65-year-old female who returns to the clinic today for renewal of her medications that she uses to help treat her ongoing low back pain and knee pain. She reports the medications are effective in helping control her pain with very minimal side effects. Today, she is rating her pain score at 3/10, describing her pain as an aching, shooting, sharp pain at times, especially with walking, stairs and prolonged standing. She reports she had a flare last week while taking care of 4 grandchildren for several days, but her pain has subsided this week. Again, besides medication, rest and ice are beneficial in helping relieve some of her discomfort. The patient does report some days not needing her full dose of medications and other days, like caring for her grandchildren, she took all of her medications because she was quite active. The patient continues to try to lose weight. She is down this visit 7 pounds since our last visit with her. She has several goals in mind for the rest of the year. She would like to be at 200 pounds by August 29. She does continue to take phentermine on a daily basis. ALLERGIES: No known drug allergies. CURRENT LIST OF MEDICATIONS: Suboxone 2/0.5 t.i.d. p.r.n., tramadol 50 mg p.r.n., meloxicam 15 mg once a day, gabapentin 1200 mg at bedtime, Soma 350 mg 1-2 tablets at bedtime, phentermine 37.5 mg daily, amlodipine, aspirin, omeprazole, and lisinopril. PQRS: 1. She has osteoarthritic issues in her knees and back. Denies any rheumatoid arthritis. 2. Height is 5 feet 2 inches, weight is 228, BMI is 41. 3. Vital signs 119/83, pulse is 88, respirations 20, oxygen sat is 100%. 4. Pain score is 3/10. 5. Denies dizziness, does not need help walking or standing, has not fallen in the last 3 months. 6. The patient is not on any blood thinners, but does [place] a [place] [address] PAIN MANAGEMENT CONSULTATION Name: LEXUS THOMAS Room #: REG CLNae Galo#: [id number] Admission: 04/21/21 Attend Phys: Medina Boyer Discharge: Date of : 59 Report #: [id number] 7. Opioid therapy is greater than 6 weeks; therefore, an opioid signed contract is on the chart. 8. Risk assessment is low. Functional assessment is . 9. Recreational drug use, she denies. She is not a smoker and does not drink alcohol. According to the prescription monitoring system, the patient is filling appropriately in a timely fashion. Her morphine milliequivalents are less than 50 MME per day. There is a random drug screen on the chart that is appropriate for her medications as well. PHYSICAL EXAMINATION: GENERAL: This is a well-developed, well-nourished class III morbidly obese 65-year-old female who appears her stated age. She is a good historian, rating her pain score today at 3/10. HEENT: Normocephalic, atraumatic. Pupils equal, round and reactive to light. She is wearing a mask. Speech is fluent. EXTREMITIES: No clubbing, no cyanosis, 1+ edema in her lower extremities bilaterally. MUSCULOSKELETAL: Modified ganglion is positive for axial low back pain. Pain is elicited with standing from the seated position, mostly in her knees bilaterally. Seated straight leg raising is negative. Lower extremity strength is symmetrical at 5/5. She has an antalgic gait. IMPRESSION: 1. Bilateral knee pain due to severe osteoarthritis with 1 total knee replacement. 2. Chronic low back pain. 3. Morbid obesity. 4. Chronic intractable pain. 5. Complex medical management utilizing scheduled opioid medications. We reviewed the fact that opiate medications are being used to provide analgesia adequate to support activities of daily living, not attempting to achieve a specific pain score on the 0-10 Visual Analog Scale. The current opiate medications are providing sufficient analgesia to allow the patient to participate in activities of daily living. The patient is not exhibiting any aberrant behavior suggestive of drug diversion. The patient is not having any adverse reactions to medications. The patient is not suffering from daytime somnolence or mental acuity changes. The patient is managing opiate-induced constipation with appropriate talb-idi-bpqxmla agents and dietary considerations. The patient was counseled on concern for caution with operating a motor vehicle while using opiate medications. PLAN: 1. We discussed treatment options with the patient today. The patient [address] [address] PAIN MANAGEMENT CONSULTATION Name: LEXUS THOMAS Room #: REG [facility].#: [id number] Admission: 04/21/21 Attend Phys: Medina Boyer Discharge: Date of : 59 Report #: [id number] continues to find the Suboxone very beneficial in helping control her pain, as well as tramadol on an as needed basis. We will have Dr. Agustin Roth write these medications for her today for two months, 90 tablets for each prescription. 2. The patient continues her adjunct medications and finds those beneficial as well such as gabapentin, meloxicam, and Soma, though no scripts needed today. I encouraged her to continue to try to decrease her Soma medications. We have slowly been weaning her off these medicines and our plan is in the next 6 months to decrease her to 30 tablets a month. The patient does report mostly taking 1 at bedtime, but occasionally needing 2 on a more painful day. 3. We congratulated her on her continued weight loss. She has lost 8 pounds since her last visit and we will continue on her phentermine to lose even more. 4. We did discuss setting a time for her total knee replacement. The patient reports very busy at home, but is discussing times to have her right knee replaced. Time spent with the patient in consultation, reviewing recent studies and clinical notes and physician reports, physical examination and correlation of findings and medical documentation to determine possible treatments, 15 minutes. Time spent in preparation for appointment, preparing for prescription monitoring system reports, and reviewing previous records and proposed treatment options and current medications, 5 minutes. Time spent preparing and sending prescriptions with collaborating physician, Dr. Agustin Roth, documentation of visit, 5 minutes. Total time spent 25 minutes. <ELECTRONICALLY SIGNED> By: Medina Boyer 04/22/21 1351 1028 1930 Medina Boyer /nt
== END ==
LOC: PAIN 06:40
PROVIDERS: ATTEND Clinical Nurse Specialist Adult Health
DX: M25.551 Pain in right hip (principal); M25.552 Pain in left hip; M19.90 Unspecified osteoarthritis, unspecified site; G89.4 Chronic pain syndrome; E66.01 Morbid (severe) obesity due to excess calories; Z79.891 Long term (current) use of opiate analgesic; Z79.899 Other long term (current) drug therapy

== ENCOUNTER → 2021-08-25 | Outpatient (CLI) | payer BC, OTHER ==
[~2021-08-25] VITALS: Ht 157.5 cm; Wt 102.7 kg
[2021-08-25 09:35] VITALS: BP 133/69
--- NOTE | 2021-08-25 10:11 | NUR ---
Pain Clinic Assessment: 1. History of Osteoarthritis: B/L KNEES BACK History of Rheumatoid Arthritis: Not Applicable 2. Height: 5 ft. 2 in. 157.5 cm. Weight: 226.4 lb. oz. 102.695 kg. Patient's BMI: 41.4 3. Vital Signs: BP: 133/69 Pulse: 94 Resp: 18 Temp: 02 Sat: 100 ECG Mon: 4. Pain Intensity: 5 5. Fall Risk: Dizziness: N Needs help standing or walking: N Fallen in the last 3 months: N Fall risk comments: 6. Patient on Blood Thinner: None 7. History of Hypertension: Y 8. Opioid Therapy greater than 6 weeks: Y Opiate Contract Signed: 03/12/16 9. Risk Assessment Tool Provided: LOW RISK 3 10. Functional Assessment Tool: 11. Recreational Drug Use: Never Drug Type: Tobacco Use: Never Smoker Tobacco Type: Amount or Packs/day: How Many Years: Alcohol Use: No Frequency: Quant:
== END ==
LOC: PAIN 06:56
PROVIDERS: ATTEND Clinical Nurse Specialist Adult Health
DX: M17.0 Bilateral primary osteoarthritis of knee (principal); M54.50 Low back pain, unspecified; G89.29 Other chronic pain; E66.9 Obesity, unspecified; Z96.652 Presence of left artificial knee joint; Z79.82 Long term (current) use of aspirin; Z79.899 Other long term (current) drug therapy